=== PATIENT | male | born 1945 | race Caucasian/White ===

== ENCOUNTER 2016-12-18 10:26 | Observation (INO) | payer MEDICARE ==
[~2016-12-18] VITALS: Ht 165.1 cm; Wt 57.2 kg
--- NOTE | ~2016-12-18 | EKG ---
[address] [place] [address] ELECTROCARDIOGRAM REPORT Name: MIC NOGUERA Room #: 422-P ADM IN M.R.#: [id number] Admission: 12/18/16 Attend Phys: Gianni Parish MD Discharge: Date of : 43 Report #: [id number] THIS REPORT FOR: //name// [facility] ED Test Date: 2016-12-18 Test Time: 10:33:41 Pat Name: MIC NOGUERA Department: Room: [facility] Gender: M Conference Assistant: angelica : 1945 Requested By: Abhijeet Bright Order Number: [id number] MD: Jose Jang Measurements Intervals [place] Rate: 53 P: 92 MD: 117 QRS: 87 QRSD: 112 T: 25 QT: 465 QTc: 437 Interpretive Statements Sinus rhythm Atrial premature complexes Probable left atrial enlargement Incomplete right bundle branch block Compared to ECG 05/21/2013 08:38:43 Atrial premature complex(es) now present Incomplete right bundle-branch block now present Electronically Signed On 12-19-2016 8:17:56 CDT by Jose Jang [email or web address] <ELECTRONICALLY SIGNED> By: Jose Jang MD, [facility] 12/19/16 0817 1033 1033 Jose Jang MD, [facility] /EPI
--- NOTE | ~2016-12-18 | H ---
[facility] [place] [address] HISTORY AND PHYSICAL Name: MIC NOGUERA Room #: 422-P ADM IN M.R.#: [id number] Admission: 12/18/16 Attend Phys: Gianni Parish MD Discharge: Date of : 43 Report #: [id number] THIS REPORT FOR: //name// CC: Gianni Wright REASON FOR ADMISSION: Palpitation. HISTORY OF PRESENT ILLNESS: The patient is a pleasant 71-year-old gentleman who reports he has been experiencing intermittent palpitations for approximately the last 2 weeks. He reports these are more frequent in the morning when he wakes up and described as a racing sensation in his heart. There is no associated chest pain, shortness of breath, abdominal pain or other symptoms. He has not had any significant dizziness; however, his symptoms are persistent. On further questioning, he admits that he has not really been taking any of his home medications in the manner they are usually prescribed and will often take them only 2 or 3 times in a week fairly randomly. He is not completely clear about which medications he is supposed to be on as an outpatient either. He denies recent illness or fevers, chills, headaches, skin rashes, diarrhea, abdominal pain or other problems. He does admit to frequency of urination; however, he does empty his bladder appropriately. In the Emergency Room, he was noted to have minimal hyperkalemia and elevated creatinine as well as EKG with PACs and is being admitted for further evaluation of these problems. PAST MEDICAL HISTORY: Includes: 1. Diabetes. 2. Left internal carotid artery stenting. 3. Renal stenting. 4. CKD. 5. Hypertension. 6. PRES syndrome. 7. Coronary artery disease, status post 4-vessel CABG as well as stenting. 8. Cholecystectomy. 9. Tonsillectomy. 10. Hyperlipidemia. MEDICATIONS: At home include: 1. Januvia 100 mg oral daily. 2. Metoprolol 50 b.i.d. 3. Primidone 50 at bedtime. 4. Atorvastatin 40 at bedtime. 5. Tamsulosin 0.4 mg at bedtime. SOCIAL HISTORY: Continues to actively smoke half a pack to a pack a day. No alcohol or drug use reported. FAMILY HISTORY: Does not report any significant at the moment. [address] [address] HISTORY AND PHYSICAL Name: MIC NOGUERA Room #: 422-P [facility] IN M.R.#: [id number] Admission: 12/18/16 Attend Phys: Gianni Parish MD Discharge: Date of : 43 Report #: [id number] ALLERGIES: No known drug allergies. REVIEW OF SYSTEMS: Twelve-point review of systems performed and negative except as mentioned in the history of present illness. PHYSICAL EXAMINATION: VITAL SIGNS: Afebrile, pulse of 59, respiratory rate 18, blood pressure is 154/88, O2 sat is 98 on room air. GENERAL: Awake, alert, no acute distress. HEENT: Unremarkable. NECK: No JVD or thyromegaly. CARDIOVASCULAR: S1, S2 present, irregular. RESPIRATORY: Air entry present bilaterally. ABDOMEN: Soft, nontender, nondistended. EXTREMITIES: Without edema. NEUROLOGIC: Awake, alert. No obvious focal findings except for tremor of the head and extremities, which is chronic per the patient. SKIN: Dry. LABS AND INVESTIGATIONS: Reviewed. CBC is unremarkable. Chemistry notable for hyperkalemia 5.5, BUN and creatinine elevated at 32 and 1.6, blood glucose elevated 215. Troponin within normal range. TSH within normal range. ProBNP of 326. Chest x-ray shows no acute findings. EKG with frequent PACs and irregular rhythm with short WA interval. ASSESSMENT AND PLAN: 1. Palpitations. The patient does have significant frequent premature atrial contractions. At the present time does not have any clear causative etiology. He does appear to have sinus bradycardia with premature atrial contractions, which may be in light of metoprolol use. At the present, we will obtain an echocardiogram and monitor him on telemetry. If he does not have any other significant abnormalities of note, potentially he may benefit from discharge with a Holter monitor and further monitoring as an outpatient with Cardiology. He also may have palpitations in light of poorly controlled diabetes, especially with medication noncompliance. 2. Coronary artery disease with stents and history of bypass. No evidence of acute coronary syndrome and stable at this time. 3. Hyperlipidemia. Resume his statin. 4. Essential tremor. Resume his primidone. 5. Hyperkalemia and creatinine elevation, unclear if this is progressive chronic kidney disease versus acute renal failure. Very likely he may have an element of retention based on his symptoms. We will try and obtain a bladder ultrasound with p.r.n. straight cath as well as hydrate the patient to medically treat the same. He has also received a dose of Lasix in the Emergency Room. 6. Deep venous thrombosis prophylaxis with low dose Lovenox. [facility] [address] [place] [address] HISTORY AND PHYSICAL Name: MIC NOGUERA Room #: 422-P ADM IN M.R.#: [id number] Admission: 12/18/16 Attend Phys: Gianni Parish MD Discharge: Date of : 43 Report #: [id number] 7. Diabetes. We will start the patient on sliding scale coverage while inpatient. The patient will be admitted to observation status with further disposition plans based on his clinical course. <ELECTRONICALLY SIGNED> By: Gianni Parish MD 12/18/16 1441 1322 1351 Gianni Parish MD /nt
--- NOTE | ~2016-12-18 | 2DMMODE ---
[facility] [address] [place] [address] 2 D/M-MODE ECHOCARDIOGRAM Name: MIC NOGUERA Room #: 422-P [facility] IN ..#: [id number] Admission: 12/18/16 Attend Phys: Gianni Parish, Discharge: Date of : 43 Date of Service: 12/18/16 1539 Report #: [id number] THIS REPORT FOR: //name// APPROVED REPORT Study performed: 12/18/2016 14:08:34 EXAM: Comprehensive 2D, Doppler, and color-flow Echocardiogram Patient Location: In-Patient Room #: 422 Status: routine BSA: 1.57 HR: 59 bpm BP: 154/88 mmHg Other Information Study Quality: Good Indications Palpitations Hx NJ< CABG. DM, PVD 2D Dimensions RVDd: 32.84 mm LVEF(%): 52.96 (>50%) IVSd: 11.83 (7-11mm) LVOT Diam: 19.34 (18-24mm) LVDd: 38.89 mm PWd: 9.84 (7-11mm) Ascending Ao: 26.72 (22-36mm) LVDs: 28.48 (25-40mm) Aortic Root: 28.47 mm IVC: 2.00 mm [place]'s LVEF: 52.96 % Volumes Left Atrial Volume (Systole) Single Plane 4CH: 45.21 mL Single Plane 2CH: 53.60 mL LA ESV Index: 34.00 mL/m2 Aortic Valve AoV Peak Jaziel.: 1.22 m/s AO Peak Gr.: 7.30 mmHg LVOT Max P.93 mmHg LVOT Max V: 0.86 m/s BRITTNEY Vmax: 2.06 cm2 Mitral Valve E/A Ratio: 0.9 MV Decel. Time: 287.37 ms [facility] [place] [address] 2 D/M-MODE ECHOCARDIOGRAM Name: MIC NOGUERA Room #: 422-P [facility]..#: [id number] Admission: 12/18/16 Attend Phys: Gianni Parish, Discharge: Date of : 43 Date of Service: 12/18/16 1539 Report #: [id number] MV E Max Jaziel.: 0.82 m/s MV A Jaziel.: 0.94 m/s MV PHT: 83.34 ms IVRT: 110.73 ms Pulmonary Valve PV Peak Jaziel.: 0.81 m/s PV Peak Gr.: 2.62 mmHg Pulmonary Vein P Vein S: 0.55 m/s P Vein A: 0.24 m/s P Vein D: 0.26 m/s P Vein A Dur.: 115.3 msec P Vein S/D Ratio: 2.12 Tricuspid Valve RAP Estimate: 5.00 mmHg Left Ventricle The left ventricle is normal size. There is normal LV segmental wall motion. Borderline concentric left ventricular hypertrophy. The left ventricular systolic function is normal. The left ventricular ejection fraction is within the normal range. LVEF is >55%. Grade I - abnormal relaxation pattern. Right Ventricle The right ventricle is normal size. The right ventricular systolic function is normal. Atria Left atrium is at the upper limits of normal. The right atrium size is normal. Aortic Valve Aortic valve is calcified. No aortic regurgitation is present. There is no aortic valvular stenosis. Mitral Valve The mitral valve is normal in structure. There is no mitral valve regurgitation noted. No evidence of mitral valve stenosis. Tricuspid Valve The tricuspid valve is normal in structure. There is no tricuspid valve regurgitation noted. Pulmonic Valve The pulmonary valve is normal in structure. [facility] [address] [place] [address] 2 D/M-MODE ECHOCARDIOGRAM Name: MIC NOGUERA Room #: 422-P [facility] IN [facility]#: [id number] Admission: 12/18/16 Attend Phys: Gianni Parish, Discharge: Date of : 43 Date of Service: 12/18/16 1539 Report #: [id number] Great Vessels The aortic root is normal in size. The ascending aorta is normal in size. IVC is normal in size and collapses >50% with inspiration. Pericardium There is no pericardial effusion. <Conclusion> The left ventricle is normal size. LVEF is >55%. Left atrium is at the upper limits of normal. Aortic valve is calcified. The mitral valve is normal in structure. The tricuspid valve is normal in structure. The pulmonary valve is normal in structure. <ELECTRONICALLY SIGNED> By: Kamlesh Clark MD 12/18/16 1539 1539 1539 Kamlesh Clark MD /INF
[~2016-12-18 10:26] MED LIST: ALDACTONE25 MG PO; AMARYL2 MG PO; AMARYL4 MG PO; AMLODIPINE BESYL5 MG PO; ATIVAN0.5 MG OR; ATORVASTATIN CA40 MG PO; BENTYL20 MG PO; COZAAR100 MG PO; DEPAKOTE 250MG250 M1 OR; GLIPIZIDE 5 MG T5 MG OR; GLUCOPHAGE1000 MG PO; GLUMETZA1000 PO; HYDROCHLOROTHIA25 M1 PO; HYDROCHLOROTHIA25 M2 GT; HYDROCODONE-AP1 EAC6 PO; LISINOPRIL20 MG PO; LOPRESSOR 50 MG50 M1 OR; LOPRESSOR 50 MG50 M1 PO; LOPRESSOR25 PO; NORCO 5-325 TA1 EACH PO; NOVOLOG100 UNIT/1; NOVOLOG100 UNIT/1 SQ; PRIMIDONE50 MG PO; SERTRALINE HCL50 MG OR; TAMSULOSIN HCL0.4 MG OR; VICODIN 5-5001 EACH PO; ZOCOR80 MG PO
[2016-12-18 10:28] VITALS: BP 156/84
[2016-12-18 10:47] LABS: ABSOLUTE NEUTROPHILS 7.4 thou/uL (1.4-8.2); BASOPHILS 0.7 % (0.0-2.0); EOSINOPHILS 1.2 % (0.0-3.0); HEMATOCRIT 48.1 % (42.0-52.0); HEMOGLOBIN 16.4 gm/dL (14.0-18.0); LYMPHOCYTES 22.5 % (24.0-44.0); MCH 31.8 pg (26.0-34.0); MCHC 34.1 g/dL (28.0-37.0); MCV 93.3 fL (80.0-100.0); MONOCYTES 5.9 % (1.0-8.0); PLATELET COUNT 164 thou/uL (150-400); POLYS 69.7 % (36.0-66.0); RBC 5.15 mil/uL (4.50-6.00); RDW 13.3 % (10.5-14.5); WBC 10.7 thou/uL (4.0-11.0)
[2016-12-18 10:49] LABS: MANUAL DIFF NO
[2016-12-18 10:59] LABS: ANION GAP 5 mmol/L (7-16); BUN 32 mg/dL (7-18); CHLORIDE 106 mmol/L (98-107); CO2 28 mmol/L (21-32); CREATININE 1.6 mg/dL (0.7-1.3); GLUCOSE 215 mg/dL (74-106); POTASSIUM 5.5 mmol/L (3.5-5.1); SODIUM 139 mmol/L (136-145)
[2016-12-18] MEDS ORDERED: JANUVIA100 MG PO (11:11)
[2016-12-18 11:12] LABS: MAGNESIUM 1.9 mg/dL (1.8-2.4); TROPONIN-I < 0.04 ng/mL (<0.04-0.07)
[2016-12-18] MEDS ORDERED: LOPRESSOR50 PO (11:13)
[2016-12-18 12:40] VITALS: BP 155/72
[2016-12-18 13:15] VITALS: BP 154/88
[2016-12-18 13:40] VITALS: BP 166/67
[2016-12-18 20:09] VITALS: BP 131/58
[2016-12-19 00:04] VITALS: BP 120/74
[2016-12-19 04:50] VITALS: BP 148/75
[2016-12-19 06:07] LABS: HEMATOCRIT 44.2 % (42.0-52.0); HEMOGLOBIN 14.7 gm/dL (14.0-18.0); MCH 31.3 pg (26.0-34.0); MCHC 33.3 g/dL (28.0-37.0); RBC 4.71 mil/uL (4.50-6.00); RDW 13.1 % (10.5-14.5); WBC 12.6 thou/uL (4.0-11.0)
[2016-12-19 06:14] LABS: CALCIUM 8.1 mg/dL (8.5-10.1); CREATININE 1.5 mg/dL (0.7-1.3); POTASSIUM 4.8 mmol/L (3.5-5.1)
[2016-12-19 07:46] LABS: URINE BILIRUBIN NEGATIVE (Negative); URINE BLOOD NEGATIVE (Negative); URINE COLOR YELLOW; URINE GLUCOSE-RANDOM* NEGATIVE (Negative); URINE KETONES TRACE (Negative); URINE NITRITE NEGATIVE (Negative); URINE PROTEIN (DIPSTICK) 1+ (Negative); URINE SPECIFIC GRAVITY 1.025 (1.003-1.035)
[2016-12-19 08:15] VITALS: BP 180/78
[2016-12-19 08:38] LABS: BACTERIA 1-9 Few /HPF (None Seen); CASTS None Seen /LPF (None Seen); CRYSTALS None Seen /LPF (None Seen); SQUAMOUS 0-3 Few /LPF (0-3); URINE RBC None Seen /HPF (0-2); URINE WBC None Seen /HPF (0-5)
[2016-12-19 11:00] VITALS: BP 154/65
[2016-12-19 16:40] VITALS: BP 159/90
[2016-12-19 18:41] VITALS: BP 159/90
== END 2016-12-19 19:27 | disposition home or self-care (01) ==
LOC: ER 10:26 → 4E 12:33 → EROBS 12:33 → 4E 12:33
PROVIDERS: Emergency Medicine; Hospitalist
DX: R00.2 Palpitations (principal); I25.10 Atherosclerotic heart disease of native coronary artery without angina pectoris; I67.83 Posterior reversible encephalopathy syndrome; E11.22 Type 2 diabetes mellitus with diabetic chronic kidney disease; I12.9 Hypertensive chronic kidney disease with stage 1 through stage 4 chronic kidney disease, or unspecified chronic kidney disease; E87.5 Hyperkalemia; G25.0 Essential tremor; N17.9 Acute kidney failure, unspecified; N18.9 Chronic kidney disease, unspecified; E78.5 Hyperlipidemia, unspecified; Z95.5 Presence of coronary angioplasty implant and graft; Z96.0 Presence of urogenital implants
CPT/HCPCS: 10183

== ENCOUNTER 2016-12-26 19:30 | Emergency (ER) | payer MEDICARE ==
[~2016-12-26] VITALS: Ht 167.6 cm; Wt 57.6 kg
--- NOTE | ~2016-12-26 | EKG ---
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: RICHARD : 1945 Requested By: Ramesh Galarza Order Number: [id number] MD: Jose Jang Measurements Intervals [place] Rate: 48 P: 45 MN: 120 QRS: 95 QRSD: 101 T: 47 QT: 427 QTc: 382 Interpretive Statements Sinus rhythm Atrial premature complexes Probable left atrial enlargement Consider right ventricular hypertrophy Compared to ECG 12/18/2016 10:33:41 No significant change was found Electronically Signed On 12-27-2016 7:59:39 CDT by Jose Jang [email or web address] <ELECTRONICALLY SIGNED> By: Jose Jang MD, [facility] 12/27/16 0759 14 14 Jose Jang MD, FAC /EPI
[~2016-12-26 19:30] MED LIST changes: +JANUVIA100 MG PO; +LOPRESSOR50 PO
[2016-12-26] MEDS ORDERED: LASIX 20 MG TAB20 MG PO (20:33)
[2016-12-26 20:52] LABS: ABSOLUTE NEUTROPHILS 10.6 thou/uL (1.4-8.2); BASOPHILS 0.3 % (0.0-2.0); EOSINOPHILS 0.5 % (0.0-3.0); HEMATOCRIT 47.8 % (42.0-52.0); HEMOGLOBIN 16.3 gm/dL (14.0-18.0); LYMPHOCYTES 13.7 % (24.0-44.0); MANUAL DIFF NO; MCH 31.4 pg (26.0-34.0); MCHC 34.1 g/dL (28.0-37.0); MCV 92.2 fL (80.0-100.0); MONOCYTES 5.3 % (1.0-8.0); PLATELET COUNT 148 thou/uL (150-400); POLYS 80.2 % (36.0-66.0); RBC 5.19 mil/uL (4.50-6.00); RDW 13.4 % (10.5-14.5); WBC 13.3 thou/uL (4.0-11.0)
[2016-12-26 20:59] LABS: ANION GAP 5 mmol/L (7-16); BUN 22 mg/dL (7-18); CALCIUM 8.8 mg/dL (8.5-10.1); CHLORIDE 107 mmol/L (98-107); CO2 26 mmol/L (21-32); CREATININE 1.3 mg/dL (0.7-1.3); GLUCOSE 192 mg/dL (74-106); POTASSIUM 5.3 mmol/L (3.5-5.1); SODIUM 138 mmol/L (136-145)
[2016-12-26 21:07] LABS: TROPONIN-I < 0.04 ng/mL (<0.04-0.07)
[2016-12-26] MEDS ORDERED: NAPROSYN500 MG PO (23:19)
[2016-12-26] MEDS ORDERED: ULTRAM 50MG TAB50 MG PO (23:19)
== END 2016-12-26 23:38 | disposition home or self-care (01) ==
LOC: ER 19:30
PROVIDERS: Nurse Practitioner
DX: R07.89 Other chest pain (principal); M54.9 Dorsalgia, unspecified; M25.512 Pain in left shoulder; E11.22 Type 2 diabetes mellitus with diabetic chronic kidney disease; N18.9 Chronic kidney disease, unspecified; E78.5 Hyperlipidemia, unspecified; I25.10 Atherosclerotic heart disease of native coronary artery without angina pectoris; F17.210 Nicotine dependence, cigarettes, uncomplicated; F10.99 Alcohol use, unspecified with unspecified alcohol-induced disorder; Z90.89 Acquired absence of other organs; Z90.49 Acquired absence of other specified parts of digestive tract

== ENCOUNTER 2017-03-22 22:58 | Observation (INO) | payer MEDICARE ==
[~2017-03-22] VITALS: Ht 167.6 cm; Wt 56.7 kg
--- NOTE | ~2017-03-22 | EKG ---
[address] [place] [address] ELECTROCARDIOGRAM REPORT Name: MIC NOGUERA Room #: 448-[facility] M.R.#: [id number] Admission: 03/23/17 Attend Phys: Marcos Garcia Discharge: Date of : 43 Report #: [id number] THIS REPORT FOR: //name// [facility] Test Date: 2017-03-23 Test Time: 07:45:14 Pat Name: MIC NOGUERA Department: Room: 448 P Gender: M Subway Repair Supervisor: ABUNDIO : 1945 Requested By: Marcos Garcia Order Number: [id number] MD: Jose Jang Measurements Intervals [place] Rate: 54 P: 52 ID: 115 QRS: 94 QRSD: 93 T: 48 QT: 458 QTc: 435 Interpretive Statements Sinus rhythm Atrial premature complexes Right axis deviation RSR' in V1 or V2, probably normal variant Poor R wave progression Compared to ECG 12/26/2016 20:15:41 No significant change was found Electronically Signed On 03-24-2017 14:12:16 FIRER GLOST KILN by Jose Jang [email or web address] <ELECTRONICALLY SIGNED> By: Jose Jang MD, [facility] 03/24/17 1412 0745 0745 Jose Jang MD, [facility] /EPI
--- NOTE | ~2017-03-22 | EKG ---
[address] [place] [address] ELECTROCARDIOGRAM REPORT Name: MIC NOGUERA Room #: 448-P [facility] M.R.#: [id number] Admission: 03/23/17 Attend Phys: Marcos Garcia Discharge: Date of : 43 Report #: [id number] THIS REPORT FOR: //name// [facility] ED Test Date: 2017-03-23 Test Time: 00:12:03 Pat Name: IMC NOGUERA Department: Room: [facility] Gender: M Optician Apprentice Dispensing: SOBIA : 1945 Requested By: Abdulaziz Joe Order Number: [id number] MD: Jose Jang Measurements Intervals [place] Rate: 82 P: 68 PA: 120 QRS: 109 QRSD: 96 T: 24 QT: 399 QTc: 466 Interpretive Statements Sinus rhythm Right ventricular conduction delay Poor R wave progression Compared to ECG 12/26/2016 20:15:41 Atrial premature complex(es) no longer present Electronically Signed On 03-24-2017 14:11:36 SHEET METAL WORKER MAINTENANCE by Jose Jang [email or web address] <ELECTRONICALLY SIGNED> By: Jose Jang MD, [facility] 03/24/17 1411 001 Jose Jang MD, [facility] /EPI
[~2017-03-22 22:58] MED LIST changes: +LASIX 20 MG TAB20 MG PO; +NAPROSYN500 MG PO; +ULTRAM 50MG TAB50 MG PO
[2017-03-22 22:59] VITALS: BP 136/86
[2017-03-22 23:48] LABS: ABSOLUTE NEUTROPHILS 7.5 thou/uL (1.4-8.2); BASOPHILS 0.6 % (0.0-2.0); EOSINOPHILS 0.8 % (0.0-3.0); HEMATOCRIT 49.4 % (42.0-52.0); HEMOGLOBIN 16.4 gm/dL (14.0-18.0); LYMPHOCYTES 16.1 % (24.0-44.0); MCHC 33.2 g/dL (28.0-37.0); MCV 93.2 fL (80.0-100.0); MONOCYTES 5.5 % (1.0-8.0); PLATELET COUNT 171 thou/uL (150-400); RDW 13.9 % (10.5-14.5); WBC 9.8 thou/uL (4.0-11.0)
[2017-03-22 23:51] LABS: MANUAL DIFF NO
[2017-03-22 23:52] LABS: URINE BILIRUBIN NEGATIVE (Negative); URINE BLOOD 1+ (Negative); URINE COLOR YELLOW; URINE GLUCOSE-RANDOM* 2+ (Negative); URINE KETONES NEGATIVE (Negative); URINE LEUKOCYTES-REFLEX NEGATIVE (Negative); URINE PROTEIN (DIPSTICK) 3+ (Negative); URINE SPECIFIC GRAVITY >= 1.030 (1.003-1.035)
[2017-03-22 23:58] LABS: ANION GAP 6 mmol/L (7-16); BUN 26 mg/dL (7-18); CALCIUM 8.5 mg/dL (8.5-10.1); CHLORIDE 105 mmol/L (98-107); CO2 28 mmol/L (21-32); CREATININE 1.5 mg/dL (0.7-1.3); GLUCOSE 242 mg/dL (74-106); POTASSIUM 5.4 mmol/L (3.5-5.1); SODIUM 139 mmol/L (136-145)
[2017-03-23] LABS: AMORPHOUS URATES Many /LPF (None Seen); SQUAMOUS 0-3 Few /LPF (0-3)
[2017-03-23 00:01] LABS: TRANSITIONAL EPITHEL CELL 0-3 Few /LPF (None Seen); URINE WBC-REFLEX 0-5 Rare /HPF (0-5)
[2017-03-23 00:02] LABS: CASTS None Seen /LPF (None Seen); URINE RBC 0-2 Rare /HPF (0-2)
[2017-03-23 00:06] LABS: ALBUMIN 3.5 g/dL (3.4-5.0); ALKALINE PHOSPHATASE 129 U/L (46-116); MAGNESIUM 1.9 mg/dL (1.8-2.4); SGOT 12 U/L (15-37); SGPT 15 U/L (30-65); TOTAL BILIRUBIN 0.3 mg/dL (<0.1-1.0); TROPONIN-I < 0.04 ng/mL (<0.06)
[2017-03-23 02:31] VITALS: BP 154/62
[2017-03-23 02:56] VITALS: BP 165/55
[2017-03-23 08:00] VITALS: BP 153/69
[2017-03-23 16:00] VITALS: BP 131/59
[2017-03-23 20:31] VITALS: BP 150/58
[2017-03-24 05:38] VITALS: BP 120/68
[2017-03-24 05:59] LABS: HEMATOCRIT 39.5 % (42.0-52.0); MCH 30.8 pg (26.0-34.0); MCHC 32.8 g/dL (28.0-37.0); RBC 4.2 mil/uL (4.50-6.00); WBC 7.6 thou/uL (4.0-11.0)
[2017-03-24 06:08] LABS: CALCIUM 7.7 mg/dL (8.5-10.1); CREATININE 1.4 mg/dL (0.7-1.3); POTASSIUM 5.1 mmol/L (3.5-5.1)
[2017-03-24 07:55] VITALS: BP 176/77
[2017-03-24 08:01] VITALS: BP 176/71
[2017-03-24 15:52] VITALS: BP 148/76
[2017-03-24 21:27] VITALS: BP 138/88
[2017-03-25] MEDS ORDERED: CEFDINIR300 MG PO (10:18)
[2017-03-25 10:21] VITALS: BP 138/88
== END 2017-03-25 11:20 | disposition home or self-care (01) ==
LOC: ER 22:58 → EROBS 03-23 01:40 → 4S 03-23 02:33 → ENTRNSPT 03-25 11:06 → 4S 03-25 11:20
PROVIDERS: Emergency Medicine
DX: R50.9 Fever, unspecified (principal); N40.0 Benign prostatic hyperplasia without lower urinary tract symptoms; E78.5 Hyperlipidemia, unspecified; I25.10 Atherosclerotic heart disease of native coronary artery without angina pectoris; F17.210 Nicotine dependence, cigarettes, uncomplicated; E11.22 Type 2 diabetes mellitus with diabetic chronic kidney disease; N18.9 Chronic kidney disease, unspecified; Z95.1 Presence of aortocoronary bypass graft

== ENCOUNTER 2017-06-06 22:32 | Inpatient (IN) | payer MEDICARE ==
[~2017-06-06] VITALS: Ht 167.6 cm; Wt 59.9 kg
[2017-06-06 22:32] VITALS: BP 162/143
[~2017-06-06 22:32] MED LIST changes: +CEFDINIR300 MG PO
[2017-06-06 23:08] LABS: HEMOGLOBIN 17.1 gm/dL (14.0-18.0); MCH 31.2 pg (26.0-34.0); MCHC 34.3 g/dL (28.0-37.0); MCV 90.8 fL (80.0-100.0); RBC 5.5 mil/uL (4.50-6.00); RDW 13.2 % (10.5-14.5); WBC 11.4 thou/uL (4.0-11.0)
[2017-06-06 23:12] LABS: ANION GAP 7 mmol/L (7-16); BUN 27 mg/dL (7-18); CALCIUM 8.8 mg/dL (8.5-10.1); CHLORIDE 99 mmol/L (98-107); CO2 30 mmol/L (21-32); CREATININE 1.9 mg/dL (0.7-1.3); GLUCOSE 224 mg/dL (74-106); POTASSIUM 4.6 mmol/L (3.5-5.1); SODIUM 136 mmol/L (136-145)
[2017-06-06 23:21] LABS: ALBUMIN 3.2 g/dL (3.4-5.0); SGOT 17 U/L (15-37); SGPT 16 U/L (30-65); TOTAL BILIRUBIN 0.7 mg/dL (<0.1-1.0); TROPONIN-I < 0.04 ng/mL (<0.06)
[2017-06-06 23:51] LABS: URINE BLOOD 1+ (Negative); URINE CLARITY CLEAR; URINE GLUCOSE-RANDOM* 1+ (Negative); URINE KETONES TRACE (Negative); URINE LEUKOCYTES-REFLEX NEGATIVE (Negative); URINE NITRITE-REFLEX NEGATIVE (Negative); URINE PROTEIN (DIPSTICK) 3+ (Negative); URINE SPECIFIC GRAVITY >= 1.030 (1.005-1.035)
[2017-06-06 23:53] LABS: ICTOTEST (BILI CONFIRMATORY) Negative (Negative); URINE BILIRUBIN NEGATIVE (Negative); URINE COLOR DARK YELLOW
[2017-06-07 00:25] LABS: SQUAMOUS 0-3 Few /LPF (0-3)
[2017-06-07 00:26] LABS: BACTERIA-REFLEX 1-9 Few /HPF (None Seen); CRYSTALS None Seen /LPF (None Seen); HYALINE CASTS >10 Many /LPF (None Seen); URINE RBC 3-10 Few /HPF (0-2); URINE WBC-REFLEX 0-5 Rare /HPF (0-5)
[2017-06-07 00:42] VITALS: BP 140/65
[2017-06-07 05:04] VITALS: BP 153/59
[2017-06-07 06:32] LABS: ANION GAP 7 mmol/L (7-16); BUN 21 mg/dL (7-18); CALCIUM 7.6 mg/dL (8.5-10.1); CHLORIDE 106 mmol/L (98-107); CHOLESTEROL 150 mg/dL (<200); CO2 25 mmol/L (21-32); CREATININE 1.4 mg/dL (0.7-1.3); GLUCOSE 173 mg/dL (74-106); HDL CHOLESTEROL 33 mg/dL (>40); LDL CHOLESTEROL 83 mg/dL (<100); POTASSIUM 4.1 mmol/L (3.5-5.1); SODIUM 138 mmol/L (136-145); TC:HDL 4.5 Ratio (Not establshd); TRIGLYCERIDE 170 mg/dL (<150); VLDL 34 mg/dL (<40)
[2017-06-07 06:34] LABS: SERUM ASSESSMENT Clear
[2017-06-07 07:50] VITALS: BP 107/94
[2017-06-07 11:43] VITALS: BP 106/44
[2017-06-07 17:02] VITALS: BP 154/65
[2017-06-07 19:50] VITALS: BP 171/71
[2017-06-08 05:12] VITALS: BP 175/100
[2017-06-08 08:00] VITALS: BP 157/74
[2017-06-08] MEDS ORDERED: NORVASC10 MG PO (08:16)
[2017-06-08] MEDS ORDERED: ASPIR 8181 MG PO (08:16)
[2017-06-08 11:45] VITALS: BP 122/52
[2017-06-08 15:45] VITALS: BP 104/56
[2017-06-08 19:32] VITALS: BP 103/56
[2017-06-09 04:40] VITALS: BP 136/72
[2017-06-09 08:42] LABS: ABSOLUTE NEUTROPHILS 6.3 thou/uL (1.4-8.2); BASOPHILS 0.7 % (0.0-2.0); HEMATOCRIT 44.9 % (42.0-52.0); LYMPHOCYTES 22.1 % (24.0-44.0); MCH 30.9 pg (26.0-34.0); MCHC 33.4 g/dL (28.0-37.0); MCV 92.4 fL (80.0-100.0); MONOCYTES 6.9 % (1.0-8.0); PLATELET COUNT 148 thou/uL (150-400); POLYS 69.3 % (36.0-66.0); RBC 4.86 mil/uL (4.50-6.00); RDW 13.3 % (10.5-14.5); WBC 9.1 thou/uL (4.0-11.0)
[2017-06-09 08:47] LABS: CREATININE 1.5 mg/dL (0.7-1.3); MAGNESIUM 1.8 mg/dL (1.8-2.4); POTASSIUM 4.3 mmol/L (3.5-5.1)
[2017-06-09 08:55] VITALS: BP 145/67
[2017-06-09 15:12] LABS: FOLIC ACID 10.2 ng/mL (8.6-58.9)
[2017-06-09 16:55] VITALS: BP 138/62
[2017-06-09 19:38] VITALS: BP 154/72
[2017-06-10 03:15] VITALS: BP 171/73
[2017-06-10 07:38] VITALS: BP 146/61
[2017-06-10 09:56] VITALS: BP 146/61
[2017-06-10 13:28] VITALS: BP 146/61
[2017-08-26] MEDS ORDERED: NORCO 5-325 TA1 EACH PO (02:15)
[2017-08-27] MEDS ORDERED: ULTRAM 50MG TAB50 MG PO (11:01)
== END 2017-06-10 13:55 | disposition home health service (06) | DRG 70 ==
LOC: ER 22:32 → 2N 23:56 → EROBS 23:56 → 2N 06-07 00:45 → ENTRNSPT 06-10 13:48 → EDTRNSPTSTS 06-10 13:52 → 2N 06-10 13:55
PROVIDERS: Emergency Medicine; Nurse Practitioner; Nurse Practitioner Acute Care
DX: G93.41 Metabolic encephalopathy (principal); N17.0 Acute kidney failure with tubular necrosis; E78.5 Hyperlipidemia, unspecified; I25.10 Atherosclerotic heart disease of native coronary artery without angina pectoris; R47.81 Slurred speech; F17.210 Nicotine dependence, cigarettes, uncomplicated; N18.3 Chronic kidney disease, stage 3 (moderate); E11.51 Type 2 diabetes mellitus with diabetic peripheral angiopathy without gangrene; I12.9 Hypertensive chronic kidney disease with stage 1 through stage 4 chronic kidney disease, or unspecified chronic kidney disease; E86.0 Dehydration; R25.1 Tremor, unspecified; N40.0 Benign prostatic hyperplasia without lower urinary tract symptoms; E11.22 Type 2 diabetes mellitus with diabetic chronic kidney disease; Z90.49 Acquired absence of other specified parts of digestive tract; Z95.1 Presence of aortocoronary bypass graft; Z79.899 Other long term (current) drug therapy; Z95.820 Peripheral vascular angioplasty status with implants and grafts; Z91.14 Patient's other noncompliance with medication regimen; Z88.6 Allergy status to analgesic agent; Z79.82 Long term (current) use of aspirin
CPT/HCPCS: 10081

== ENCOUNTER → 2018-03-18 | Outpatient (CLI) | payer BC ==
[~2018-03-18] MED LIST changes: +ASPIR 8181 MG PO; +NORVASC10 MG PO
== END ==
LOC: RAD 09:11
DX: R07.81 Pleurodynia (principal); M54.5 Low back pain; W19.XXXA Unspecified fall, initial encounter

== ENCOUNTER → 2018-08-14 | Outpatient (CLI) | payer MEDICARE | LOC: NUC 09:40 | DX: I25.10 Atherosclerotic heart disease of native coronary artery without angina pectoris (principal); I48.91 Unspecified atrial fibrillation; E11.9 Type 2 diabetes mellitus without complications; F17.200 Nicotine dependence, unspecified, uncomplicated; Z88.5 Allergy status to narcotic agent; Z79.899 Other long term (current) drug therapy ==

== ENCOUNTER → 2018-12-04 | Outpatient (CLI) | payer MEDICARE | LOC: MRI 10:59 | DX: M51.27 Other intervertebral disc displacement, lumbosacral region (principal); M47.816 Spondylosis without myelopathy or radiculopathy, lumbar region; M12.88 Other specific arthropathies, not elsewhere classified, other specified site ==

== ENCOUNTER 2019-05-05 15:49 | Emergency (ER) | payer MEDICARE ==
[~2019-05-05] VITALS: Ht 167.6 cm; Wt 51.3 kg
[2019-05-05 16:14] LABS: ABSOLUTE NEUTROPHILS 7.2 thou/uL (1.4-8.2); BASOPHILS 0.8 % (0.0-2.0); EOSINOPHILS 0.8 % (0.0-3.0); HEMATOCRIT 45.9 % (42.0-52.0); HEMOGLOBIN 15.1 gm/dL (14.0-18.0); LYMPHOCYTES 17.9 % (24.0-44.0); MCH 31.2 pg (26.0-34.0); MCHC 32.8 g/dL (28.0-37.0); MCV 95.1 fL (80.0-100.0); MONOCYTES 6.2 % (1.0-8.0); PLATELET COUNT 197 thou/uL (150-400); POLYS 74.3 % (36.0-66.0); RBC 4.83 mil/uL (4.50-6.00); RDW 14.2 % (10.5-14.5); WBC 9.8 thou/uL (4.0-11.0)
[2019-05-05 16:26] LABS: APTT 29.1 Seconds (24.5-32.8); INR 1.1; PROTIME 10.8 Seconds (9.3-11.4)
[2019-05-05 16:31] LABS: ALBUMIN 3.8 g/dL (3.4-5.0); ANION GAP 5 mmol/L (7-16); BUN 19 mg/dL (7-18); CALCIUM 9.4 mg/dL (8.5-10.1); CHLORIDE 109 mmol/L (98-107); CO2 30 mmol/L (21-32); CREATININE 1.9 mg/dL (0.7-1.3); GLUCOSE 132 mg/dL (74-106); SGOT 13 U/L (15-37); SGPT 17 U/L (30-65); SODIUM 144 mmol/L (136-145); TOTAL BILIRUBIN 0.5 mg/dL (<0.1-1.0); TOTAL PROTEIN 8.1 g/dL (6.4-8.2); TROPONIN-I <0.06 ng/mL (<0.06)
[2019-05-05 16:37] LABS: POTASSIUM 6.3 mmol/L (3.5-5.1)
[2019-05-05] MEDS ORDERED: PREDNISONE 20 M20 M1 PO (18:37)
[2019-05-05 18:58] VITALS: BP 152/90
--- NOTE | 2019-05-06 17:12 | EKG ---
[address] [address] ELECTROCARDIOGRAM REPORT Name: MIC NOGUERA [id number] Admission: 05/05/19 Attend Phys: Discharge: 05/05/19 Date of : 43 Report #: [id number] THIS REPORT FOR: //name// [facility] ED Test Date: 2019-05-05 Test Time: 16:24:04 Pat Name: MIC NOGUERA Department: Room: Gender: Mc Kay Machine Operator: JERALD : 1945 Requested By: Orin Wang Order Number: [id number] MD: Grover Robertson Measurements Intervals [place] Rate: 66 P: 24 TN: 127 QRS: 139 QRSD: 135 T: 151 QT: 446 QTc: 468 Interpretive Statements Sinus rhythm RBBB and LPFB Motion artifact Compared to ECG 08/26/2017 04:07:24 Electronically Signed On 05-06-2019 17:11:21 CELL LINER by Grover Robertson [email or web address] <ELECTRONICALLY SIGNED> By: Grover Robertson MD 05/06/19 1711 D: [id number] 23 Grover Robertson MD /[place]
== END 2019-05-05 19:14 | disposition home or self-care (01) ==
LOC: ER 15:49
PROVIDERS: Emergency Medicine
DX: G51.0 Bell's palsy (principal); E87.5 Hyperkalemia; I25.10 Atherosclerotic heart disease of native coronary artery without angina pectoris; E11.22 Type 2 diabetes mellitus with diabetic chronic kidney disease; N18.9 Chronic kidney disease, unspecified; E78.5 Hyperlipidemia, unspecified; F17.210 Nicotine dependence, cigarettes, uncomplicated; R56.9 Unspecified convulsions; Z95.1 Presence of aortocoronary bypass graft; Z90.49 Acquired absence of other specified parts of digestive tract; Z88.6 Allergy status to analgesic agent

== ENCOUNTER 2019-10-20 18:59 | Inpatient (IN) | payer MEDICARE ==
[~2019-10-20] VITALS: Ht 167.6 cm; Wt 51.3 kg
[~2019-10-20 18:59] MED LIST changes: +PREDNISONE 20 M20 M1 PO
[2019-10-20 19:00] VITALS: BP 244/122
[2019-10-20 19:26] LABS: ABSOLUTE NEUTROPHILS 5.4 thou/uL (1.4-8.2); BASOPHILS 0.7 % (0.0-2.0); EOSINOPHILS 0.8 % (0.0-3.0); HEMATOCRIT 50.8 % (42.0-52.0); HEMOGLOBIN 17.1 gm/dL (14.0-18.0); LYMPHOCYTES 23.3 % (24.0-44.0); MCH 31.8 pg (26.0-34.0); MCHC 33.7 g/dL (28.0-37.0); MCV 94.4 fL (80.0-100.0); MONOCYTES 5.5 % (1.0-8.0); PLATELET COUNT 179 thou/uL (150-400); POLYS 69.7 % (36.0-66.0); RBC 5.38 mil/uL (4.50-6.00); RDW 13.9 % (10.5-14.5); WBC 7.8 thou/uL (4.0-11.0)
[2019-10-20 19:30] LABS: ANION GAP 3 mmol/L (7-16); BUN 14 mg/dL (7-18); CALCIUM 8.5 mg/dL (8.5-10.1); CHLORIDE 102 mmol/L (98-107); CO2 31 mmol/L (21-32); CREATININE 1.5 mg/dL (0.7-1.3); GLUCOSE 173 mg/dL (74-106); SODIUM 136 mmol/L (136-145)
[2019-10-20 19:41] LABS: ALBUMIN 3.5 g/dL (3.4-5.0); MAGNESIUM 1.9 mg/dL (1.8-2.4); SGOT 14 U/L (15-37); SGPT 13 U/L (30-65); TOTAL BILIRUBIN 0.5 mg/dL (0.2-1.0); TOTAL PROTEIN 7.2 g/dL (6.4-8.2); TROPONIN-I <0.06 ng/mL (<0.06)
[2019-10-20 20:11] LABS: URINE BILIRUBIN NEGATIVE (Negative); URINE BLOOD 1+ (Negative); URINE CLARITY CLEAR; URINE COLOR YELLOW; URINE GLUCOSE-RANDOM* TRACE (Negative); URINE KETONES NEGATIVE (Negative); URINE LEUKOCYTES-REFLEX NEGATIVE (Negative); URINE NITRITE-REFLEX NEGATIVE (Negative); URINE PROTEIN (DIPSTICK) 3+ (Negative)
[2019-10-20 20:20] LABS: AMP/METHAMP Negative (Negative); BARBITURATES Negative (Negative); BENZODIAZEPINES Negative (Negative); COCAINE Negative (Negative); METHADONE Negative (Negative); OPIATES POSITIVE (Negative); PCP Negative (Negative); SQUAMOUS None Seen /LPF (0-3); URINE WBC-REFLEX 0-5 Rare /HPF (0-5)
[2019-10-20 20:21] LABS: BACTERIA-REFLEX None Seen /HPF (None Seen); CASTS None Seen /LPF (None Seen); CRYSTALS None Seen /LPF (None Seen); URINE RBC 0-2 Rare /HPF (0-2)
[2019-10-20 21:31] VITALS: BP 177/79
--- NOTE | 2019-10-20 21:43 | NUR ---
CALLED TO GIVE REPORT, WAS TOLD NURSE WILL HAVE TO CALL BACK
[2019-10-20 22:18] VITALS: BP 186/86
[2019-10-20 22:45] VITALS: BP 171/79
[2019-10-20 23:38] LABS: CHOLESTEROL 175 mg/dL (<200); HDL CHOLESTEROL 37 mg/dL (>40); LDL CHOLESTEROL 110 mg/dL (<100); TC:HDL 4.7 Ratio (Not establshd); TRIGLYCERIDE 144 mg/dL (<150); VLDL 29 mg/dL (<40)
[2019-10-20 23:39] LABS: SERUM ASSESSMENT Clear
[2019-10-21 00:15] VITALS: BP 114/62
[2019-10-21 05:02] VITALS: BP 139/68
--- NOTE | 2019-10-21 05:13 | NUR ---
PT WAS AN ADMIT FROM ER. PT WAS ADMITTED WITH ELEVATED BLOOD PRESSURE. PT IS STABLE UPON ARRIVAL TO THE FLOOR. NO FAMILY AT BEDSIDE. DENIES ANY PAIN. ADMISSION ASSESSMENT, DATA AND EDUCATION COMPLETED. PT IS ALERT AND ORIENTED. FALL PRECAUTION IN PLACE. CALL LIGHT WITHIN REACH. NURSING POC. MONITORED BLOOD THROUGH THE NIGHT. BLOOD PRESSURE IMPROVED. PT IS STABLE THROUGH THE NIGHT. DENIES ANY NEEDS. CONTINUE TO MONITOR PT.
[2019-10-21 05:52] LABS: HEMATOCRIT 42.5 % (42.0-52.0); MCH 31.7 pg (26.0-34.0); MCHC 33.3 g/dL (28.0-37.0); RBC 4.48 mil/uL (4.50-6.00); RDW 13.9 % (10.5-14.5); WBC 8.4 thou/uL (4.0-11.0)
[2019-10-21 06:01] LABS: HEMOGLOBIN 14.2 gm/dL (14.0-18.0)
[2019-10-21 06:24] LABS: CALCIUM 7.7 mg/dL (8.5-10.1); CREATININE 1.6 mg/dL (0.7-1.3); MAGNESIUM 1.7 mg/dL (1.8-2.4); POTASSIUM 4.7 mmol/L (3.5-5.1); TROPONIN-I 0.12 ng/mL (<0.06)
--- NOTE | 2019-10-21 07:33 | EKG ---
[facility] [place] [address] ELECTROCARDIOGRAM REPORT Name: MIC NOGUERA Room #: 214-P ADM IN M.R.#: [id number] Admission: 10/20/19 Attend Phys: Fadi Cabral MD Discharge: Date of : 43 Report #: [id number] THIS REPORT FOR: cc: Rahel Alegria MD, Nora P. MD Lundgren,Jose Lyons MD [facility] ~ THIS REPORT FOR: //name// [facility] ED Test Date: 2019-10-20 Test Time: 19:27:06 Pat Name: MIC NOGUERA Department: Room: 214 Gender: M Quality Assurance Engineer: HEIDI : 1945 Requested By: Abdulaziz Joe Order Number: [id number] MD: Jose Jang Measurements Intervals [place] Rate: 114 P: 69 MA: 125 QRS: 132 QRSD: 130 T: 42 QT: 362 QTc: 499 Interpretive Statements Sinus tachycardia Rightward axis, consider RVH Incomplete right bundle branch block Baseline wander in lead(s) V1 Compared to ECG 05/05/2019 16:24:04 Heart rate has increased Electronically Signed On 10-21-2019 7:32:20 CDT by Jose Jang [email or web address] <ELECTRONICALLY SIGNED> By: Jose Jang MD, [facility] 10/21/19 0732 26 26 Jose Jang MD, [facility] /EPI
[2019-10-21 07:40] VITALS: BP 154/83
--- NOTE | 2019-10-21 10:55 | 2DMMODE ---
[facility] [place] [address] 2 D/M-MODE ECHOCARDIOGRAM Name: MIC NOGUERA Room #: 214-P ADM IN .R.#: [id number] Admission: 10/20/19 Attend Phys: Fadi Cabral MD Discharge: Date of : 43 Report #: [id number] THIS REPORT FOR: cc: Rahel Alegria MD, Nora P. MD Park, Jin S. MD ~ APPROVED REPORT Study performed: 10/21/2019 10:08:09 EXAM: Comprehensive 2D, Doppler, and color-flow Echocardiogram Patient Location: Bedside Room #: 214 Status: routine BSA: 1.58 HR: 65 bpm BP: 154/83 mmHg Rhythm: Sinus/irregular Other Information Study Quality: Good Indications Hypertensive urgency. Hx: CABG, PVD, DM, HTLP, HTN, Tob abuse. 2D Dimensions RVDd: 32.04 mm IVSd: 14.00 (7-11mm) LVOT Diam: 19.32 (18-24mm) LVDd: 39.00 mm PWd: 12.00 (7-11mm) LVDs: 25.12 (25-40mm) Aortic Root: 32.64 mm Volumes Left Atrial Volume (Systole) Single Plane 4CH: 39.45 mL Single Plane 2CH: 46.04 mL LA ESV Index: 28.00 mL/m2 Aortic Valve AoV Peak Jaziel.: 1.31 m/s AO Peak Gr.: 7.60 mmHg LVOT Max P.13 mmHg LVOT Max V: 0.89 m/s BRITTNEY Vmax: 1.99 cm2 [facility] [address] [place] [address] 2 D/M-MODE ECHOCARDIOGRAM Name: MIC NOGUERA Room #: 214-P [facility] IN [facility]#: [id number] Admission: 10/20/19 Attend Phys: Fadi Cabral, Discharge: Date of : 43 Report #: [id number] Mitral Valve E/A Ratio: 0.7 MV Decel. Time: 358.04 ms MV E Max Jaziel.: 0.77 m/s MV A Jaziel.: 1.07 m/s MV PHT: 103.83 ms IVRT: 103.81 ms Pulmonary Valve PV Peak Jaziel.: 1.03 m/s PV Peak Gr.: 4.27 mmHg Pulmonary Vein P Vein S: 0.36 m/s P Vein A: 0.24 m/s P Vein D: 0.23 m/s P Vein A Dur.: 138.4 msec P Vein S/D Ratio: 1.57 Tricuspid Valve RAP Estimate: 5.00 mmHg Left Ventricle The left ventricle is normal size. There is normal LV segmental wall motion. Mild concentric left ventricular hypertrophy. Left ventricular systolic function is hyperdynamic. LVEF is 65-70%. Mild diastolic dysfunction is present (impaired relaxation pattern). Right Ventricle The right ventricle is normal size. The right ventricular systolic function is normal. Atria The left atrium size is normal. The right atrium size is normal. Aortic Valve Aortic valve leaflets are mildly thickened and calcified. No aortic regurgitation is present. There is no aortic valvular stenosis. Mitral Valve Mitral valve leaflets are thickened. Mild mitral annular calcification. There is no mitral valve regurgitation noted. No evidence of mitral valve stenosis. Tricuspid Valve [facility] [address] [place] [address] 2 D/M-MODE ECHOCARDIOGRAM Name: CHUCKIELULUKIAH Room #: 214-P [facility] IN .R.#: [id number] Admission: 10/20/19 Attend Phys: Fadi Cabral, Discharge: Date of : 43 Report #: [id number] The tricuspid valve is normal in structure. There is no tricuspid valve regurgitation noted. Unable to assess PA pressure. Pulmonic Valve The pulmonary valve is normal in structure. There is no pulmonic valvular regurgitation. Great Vessels The aortic root is normal in size. Ascending aorta is not well visualized. IVC is normal in size and collapses >50% with inspiration. Pericardium There is no pericardial effusion. <Conclusion> The left ventricle is normal size. Mild concentric left ventricular hypertrophy. Left ventricular systolic function is hyperdynamic. Mild diastolic dysfunction is present (impaired relaxation pattern). The right ventricle is normal size. The left atrium size is normal. Aortic valve leaflets are mildly thickened and calcified. Mild mitral annular calcification. There is no tricuspid valve regurgitation noted. <ELECTRONICALLY SIGNED> By: Dany Freed MD 10/21/19 1054 1054 1054 Dany Freed MD /INF
--- NOTE | 2019-10-21 11:02 | NUR ---
Recommend start Vitamin B12 replacement, level is 252
[2019-10-21 11:58] VITALS: BP 167/78
--- NOTE | 2019-10-21 12:14 | NUR ---
Chart reviewed and case discussed with the care team. Supervisor Force Adjustment visited with the pt at bedside. He was short and aggravated that people keep coming in to bother him. He did indicate that he lives with multiple family members including his son and two grandsons. He reports that his son Isaac and his dtr Judie are his spokespersons and emergency contacts. He reports them helpful at times. He denies any concerns about caring for himself at home and notes that he has a w/c and rwalker. He reports being indep with transfers. Staff report that his mental status is improved from yesterday. The pt's pcp is Dr. Rahel Alergia/Rober. He anticipates returning home at nc. Nursing reports that his dtr has called to check on him this am and she indicates he does have periods of STM loss and has needed more help with managing his affairs. PT/OT evals are pending. Pt is being seen by neuro and jonathan today. Will follow along for possible hh referral at nc pending his progress.
--- NOTE | 2019-10-21 12:16 | NUR ---
PT. FORM FOR MRI SENT DOWN AT THIS TIME. PT. DENIES ANUY CONTRAST DYE ISSUES PRIOR. DENIES ANY SOB, DENIES ANY CP AT PRESENT. HAS HAND TREMORS STILL AND SAID HE HAS HAD THEM FOR 30 YEAR'S.
[2019-10-21 15:38] VITALS: BP 162/70
--- NOTE | 2019-10-21 15:41 | NUR ---
MRI CALLED AND SAID THAT HIS RESULTS FOR HIS MRI SHOW AN INFARCT. WILL CALL MD WITH RESULTS NOW. TRANSFER IS X1 ASSIST WITH GAIT BELT. HE APPEARS TO HAVE SOME VERBAL ASPHAGIA AND EXPRESSIVE DYSPHAGIA GOING ON WELL. FAMILY HAS CALLED WELL AND UPDATE WAS GIVEN TO DAUGHTER KUMAR . DENIES SOB, DENIES CP.
--- NOTE | 2019-10-21 15:43 | NUR ---
0800 PT. SLEEPING AROUSES EASILY, FOLLOWS COMMANDS OVERALL. EXPRESSIVE DYSPHAGIA OBSERVED OVERALL. DENIES CP, DENIES SOB.
[2019-10-21 19:16] VITALS: BP 158/74
[2019-10-22] VITALS (7 sets, daily range): BP systolic 94–190; BP diastolic 48–113
[2019-10-22 00:06] LABS: GLYCOHEMOGLOBIN (HGB A1C) 6.7 % (4.8-5.6)
[2019-10-22 05:24] LABS: CALCIUM 8.6 mg/dL (8.5-10.1); CREATININE 1.4 mg/dL (0.7-1.3); POTASSIUM 4.9 mmol/L (3.5-5.1)
[2019-10-22 08:27] LABS: HEMATOCRIT 50.6 % (42.0-52.0); MCH 31.8 pg (26.0-34.0); MCHC 33.5 g/dL (28.0-37.0); RBC 5.33 mil/uL (4.50-6.00); RDW 14.1 % (10.5-14.5); WBC 10.1 thou/uL (4.0-11.0)
--- NOTE | 2019-10-22 08:27 | NUR ---
ASSUMED CARE OF PT AT SHIFT CHANGE, NOTED HTN AT 0400 VS, HIGH DURING THIS SHIFT WELL SO WILL ADM PRN MED. A&0X4, HAS TREMORS/SHAKES, CHRONIC, STATES HE USES A CANE AT HOME/AND SOMETIMES A WALKER. NO NEEDS AT THIS TIME OTHER THAN FRESH WATER, MINIMAL PAIN IN RIBS. SCATTERED BRUNA BRUISING. SEE SEPARATE INTERVENTIONS FOR ASSESSMENTS, WILL CONTINUE TO MONITOR. ENCOURAGED PT TO USE CALL LIGHT FOR ANY NEEDS
[2019-10-22 08:35] LABS: HEMOGLOBIN 16.9 gm/dL (14.0-18.0)
--- NOTE | 2019-10-22 16:09 | NUR ---
PATIENT SEEN FOR REHAB CONSULT THIS DATE BY BI RODRIGUEZ NP WITH DR. BILL. PATIENT IS AN APPROPRIATE CANDIDATE FOR ACUTE REHAB AND CAN BE ACCEPTED TO WHEN MEDICALLY READY. CHEMICAL RADIATION TECHNICIAN INFORMED. THANK YOU FOR THIS REFERRAL.
--- NOTE | 2019-10-22 16:32 | NUR ---
Case discussed with the care team. New CVA confirmed via CT. Pt evaluated by Marcos acute rehab and accept pending insurance approval. VinceN liason to touch base with the pt/son. The pt is not able to return directly/saftley home. Marcos is submitting for ins auth.
--- NOTE | 2019-10-22 18:41 | NUR ---
KUMAR DAUGHTER'S PHONE NUMBER [phone]
--- NOTE | 2019-10-23 03:08 | NUR ---
ASSESMENT: PT REMAIN ALERT AND ORIENT TIMES THREE. DOES GET SOME WHAT FORGETFUL TO SITUATION AND TIME. EASY TO REORIENT. VSS, AFEBRILE. POSSIBLE DC TO [facility] IN THE AM. ATIVAN GIVEN WITH GOOD RESPONSE, PT SLEPT FOR 2 HOURS POST GETTING ATIVAN. SB/SR WITH PVC'S PER MONITOR. LAST BM WAS 10/20/19. TREMORS NOTED AND UNSYMMETRICAL FACIAL APPEARANCE. DOES NOT HAVE A PROBLEM WITH SWALLOWING MEDS. SOMETIMES APPEARS TO BE ANGRY WHICH HE SOON RECONNIZES HIS BEHAVIOR AND ATTEMPTS TO BE NICE. SOME TIMES IT'S JUST "HIM" NO OFFENSE TAKEN, PT IS GOING THROUGH A LOT EMOTIONALLY AND PHYSICALLY. SLOW PROGRESS TOWARDS DC GOALS, WILL CONTINUE TO MONITOR.
[2019-10-23 03:33] VITALS: BP 193/81
[2019-10-23 05:19] LABS: CALCIUM 8.1 mg/dL (8.5-10.1); CREATININE 1.8 mg/dL (0.7-1.3); MAGNESIUM 2.2 mg/dL (1.8-2.4); POTASSIUM 5.1 mmol/L (3.5-5.1)
[2019-10-23 05:53] LABS: HEMATOCRIT 47.6 % (42.0-52.0); MCH 31.9 pg (26.0-34.0); MCHC 33.6 g/dL (28.0-37.0); MCV 95.2 fL (80.0-100.0); RDW 13.7 % (10.5-14.5); WBC 7.1 thou/uL (4.0-11.0)
[2019-10-23 08:01] VITALS: BP 124/52
[2019-10-23 12:20] VITALS: BP 124/54
--- NOTE | 2019-10-23 14:15 | NUR ---
ATTEMPTED TO REACH [employer] FOR AUTHORIZATION 10/22/19, BUT WAS UNABLE TO REACH ANYONE TO INITIATE AUTHORIZATION REQUEST (AFTER 30-45 MINUTES). ATTEMPTED TO REACH [employer] AGAIN THIS AM AGAIN AND AFTER 45 MINUTES AND 2 REHAB TEAM MEMBERS WORKERING ON THIS, FOUND THAT AUTHORIZATION REQUESTS HAD TO BE MADE BY FAX. REQUEST FORM COMPLETED AND CLINICAL INFORMATION SENT THIS DATE. ANTICIPATE RESPONSE EARLY NEXT WEEK. NEW ACCOUNTS REPRESENTATIVE CALLED PATIENT'S SON ON 10/21/19 AND LEFT MESSAGE TO CALL NEW ACCOUNTS REPRESENTATIVE TO DISCUSS ACUTE REHAB OPTION. NO CALL BACK RECEIVED YET. THANK YOU FOR THIS REFERRAL.
[2019-10-23 16:05] VITALS: BP 141/57
[2019-10-23 16:07] LABS: ANA INTERPRETATION Positive (Negative)
[2019-10-23 16:14] LABS: CALCIUM 7.9 mg/dL (8.5-10.1); POTASSIUM 5.3 mmol/L (3.5-5.1)
--- NOTE | 2019-10-23 19:39 | NUR ---
ASSUMMED PT CARE AT APPROXIMATELY 0700, PT A&O X3, FORGETFUL AT TIMES. ASSESSMENT CHARTED. FALL PRECAUTIONS IN PLACE. PT DENIES HAVING CHEST PAIN. PT DENIES HAVING SOB. PT DENIES HAVING ACUTE PAIN. PT AMBULATES UNSTEADY C ASSIST X1. PT AGITATED AND CONFUSED AT TIMES. AT APPROXIMATELY 1600, PT SWEATY AND LETHARGIC. HYPOGLYCEMIA PROTOCOL INITIATED. DR. COE NOTIFIED. RECHECKED BLOOD SUGAR. BLOOD SUGAR STABLE. PT C INCREASED ALERTNESS AND AWAKE. INFORMED PT THAT DR. COE ORDERED A CARRION CATH PLACEMENT DUE TO PT NOT URINATING AND HAVING RETENTION. PT BECAME SEVERELY AGITATED. PULLED OUT IV. WENT TO BATHROOM AND URNIATED. PULLED OFF CLOTHES AND TELE PACK, STARTED CUSSING AND BECOMING MATHIEU C NURSING STAFF AND SPITTING. NOTIFIED DR. COE AND DR. GUTHRIE OF PT BEING SEVERELY AGITATED AND HAVING CONFUSED VERBAGE. DR. COE AND DR. GUTHRIE ENTERED NEW ORDERS, NEW ORDERS IMPLEMENTED. SOFT WRIST RESTRAINTS ORDERED. SEE CARE PLAN. FAMILY NOTIFIED AND EDUCATED FAMILY. FAMILY STATED UNDERSTANDING AND HAD NO NEW QUESTIONS. VITAL SIGNS STABLE. BLOOD SUGAR STABLE. PT BECOMES SLIGHTLY AGITATED WHEN ASKED QUESTIONS. PT CONFUSED. PT IN BED. PT DENIES HAVING FURTHER CONCERNS. GAVE BROADCAST PROGRAM DIRECTOR RN REPORT, RN STATED UNDERSTANDING AND DENIED HAVING FURTHER QUESTIONS.
[2019-10-23 19:44] VITALS: BP 149/85
[2019-10-23 21:06] LABS: SYPHILIS AB Non Reactive (Non Reactive)
[2019-10-24] VITALS (9 sets, daily range): BP systolic 140–177; BP diastolic 61–102
[2019-10-24 05:17] LABS: HEMATOCRIT 46.7 % (42.0-52.0); HEMOGLOBIN 15.5 gm/dL (14.0-18.0); MCH 31.8 pg (26.0-34.0); MCHC 33.2 g/dL (28.0-37.0); MCV 95.8 fL (80.0-100.0); RBC 4.87 mil/uL (4.50-6.00); RDW 13.7 % (10.5-14.5); WBC 10.5 thou/uL (4.0-11.0)
--- NOTE | 2019-10-24 05:25 | NUR ---
ASSUMED PT CARE AT 1900. UPON ARRIVAL TO [facility], PT IS AGITATED. PT IS ALERT BUT CONFUSED. FALL PRECAUTION IN PLACE. PT IS DROWSY THROUGH OUT THE NIGHT, NO SIGN OF DISTRESS NOTED. ASSESSMENT COMPLETED AND DOCUMENTED. FALL PRECAUTION IN PLACE. PT IS STABLE F0R THE NIGHT. CONTINUE TO MONITOR. NO NEEDS AT THIS TIME.
[2019-10-24 05:36] LABS: CALCIUM 7.9 mg/dL (8.5-10.1); CREATININE 1.6 mg/dL (0.7-1.3); MAGNESIUM 2.3 mg/dL (1.8-2.4)
[2019-10-24 14:24] LABS: PROT/CREAT RATIO 1.9; URINE CREATININE-RANDOM* 32.9 mg/dL; URINE PROTEIN-RANDOM* 61.1 mg/dL (<11.9)
--- NOTE | 2019-10-24 18:06 | NUR ---
PT CARE ASSUMED AT 0700. ASSESSMENTS CHARTED. MEDICATION CHARTED. PT INCONTINENT MUCH OF THE TIME, PLACED IN BRIEFS. DAUGHTER SPOKE WITH DR MURRAY ABOUT PRES AND CVA. RESTRAINTS RENEWED AT 1700. PT AGITATED WHEN INTERACTING.
--- NOTE | 2019-10-24 22:31 | NUR ---
AT SHIFT CHANGE, PT WAS ALERT AND COHERENT ENOUGH. PT WAS STABLE AMD TALKING TO RN. AT 20:15, PT WAS RELEASE FROM RESTRAINTS, BED ALARM WAS ON. PT RE-EDUCATED THE PATIENT ON CALLING BEFORE GETTING OUT OF BED. RN WAS CAME BY PT'S ROOM AND CHARGE NURSE AND CLASSICS PROFESSOR WAS AT PATIENT'S BEDSIDE. RN WAS INFORMED THAT PT TRIED GETTING OUT OF BED AND THE BED ALARM SOUNDED, UPON ARRIVAL TO THE ROOM, PT WAS SEEN STANDING AND FALLING BUT DIDNT FALL TO THE FLOOR, INSTEAD HE FELL INTO THE RESTING ARM OF A NEAR BY CHAIR. PT WAS CAUGHT BY CHARGE NURSE AND HE WAS ASSIST BACK TO BED. PT BECAME AGITATED TOWARDS STAFF. AN ORDER FOR A NEW RESTRAINTS WAS OBTAINTED AND NEW RESTRAINTS WERE REAPPLY ON PT. POST FALL ASSESSMENT COMPLETED ON PATIENT, FAMILY NOTIFIED, FINANCIAL PLANNING ANALYST NOTIFIED, NURSE PRACTITONER NOTIFIED. PT DENIES ANY PAIN. CONTINUE TO MONITOR PT. NO FURTHER NEEDS AT THIS TIME.
[2019-10-25 03:30] VITALS: BP 155/68
[2019-10-25 05:07] LABS: HEMATOCRIT 45.5 % (42.0-52.0); HEMOGLOBIN 15.3 gm/dL (14.0-18.0); MCH 31.8 pg (26.0-34.0); MCHC 33.6 g/dL (28.0-37.0); MCV 94.7 fL (80.0-100.0); RBC 4.8 mil/uL (4.50-6.00); RDW 13.6 % (10.5-14.5)
[2019-10-25 05:16] LABS: ALBUMIN 2.6 g/dL (3.4-5.0); CALCIUM 8.2 mg/dL (8.5-10.1); CREATININE 1.5 mg/dL (0.7-1.3); PHOSPHORUS 3.4 mg/dL (2.5-4.9); POTASSIUM 4.8 mmol/L (3.5-5.1)
--- NOTE | 2019-10-25 05:19 | NUR ---
ASSUMED PT CARE AT 1900. PT WAS ALERT AND ORIENTED AT THE BEGINNING OF SHIFT CHANGE. NO SIGN OF DISTRESS NOTED. FALL PRECAUTION IN PLACE. CALL LIGHT WITHIN REACH. ASSESSMENT COMPLETED AND DOCUMENTED. VITAL SIGN STABLE. SCHEDULED MEDS ADMINISTERED TO PT. TOLERATED PO INTAKE. AFTER MED ADMINISTRATION, PT BECAME CONFUSED AND AGITATED. CONTINUE TO MONITOR THROUGH THE NIGHT. NO FURTHER NEEDS AT THIS TIME.
[2019-10-25 09:03] VITALS: BP 168/77
--- NOTE | 2019-10-25 15:06 | NUR ---
PT CARE ASSUMED APPROX 0700. ASSESSMENTS CHARTED. PT DOES NOT APPEAR IN PAIN. NO DISTRESS NOTED. PT REMAINS CONFUSED, AGITATED AND COMBATIVE. BWR REMAIN INTACT. PT AND DAUGHTER EDUCATED AT BEDSIDE. PT UNSAFE TO EAT AT THIS TIME. DRs AWARE. IVF RESTARTED. PT CARE TRANSFERRED TO A NEW NURSE AT THIS TIME.
[2019-10-25 16:00] VITALS: BP 154/73
--- NOTE | 2019-10-25 16:37 | NUR ---
ASSUMED PT'S CARE CLOSE TO 1500; PT. CONFUSED; RESTLESS; WHEN ASKED IF HAVE SOME PAIN; ST. "NO"; ON SOFT RESTRAINS; INCONTINENT; COMPLETE BED CHANGED; EXTERNAL MALE CATHETER APPLIED; REFUSED WATER; ON IV FLUIDS; MONITORING; ASSESSMENT CHARGED; FOLLOWING POC; WILL PASS ON REPORT;
[2019-10-25 19:42] VITALS: BP 176/76
[2019-10-26 03:12] LABS: URINE BILIRUBIN NEGATIVE (Negative); URINE BLOOD TRACE (Negative); URINE CLARITY CLEAR; URINE COLOR YELLOW; URINE GLUCOSE-RANDOM* NEGATIVE (Negative); URINE KETONES 1+ (Negative); URINE LEUKOCYTES-REFLEX NEGATIVE (Negative); URINE NITRITE-REFLEX NEGATIVE (Negative); URINE PROTEIN (DIPSTICK) 2+ (Negative); URINE SPECIFIC GRAVITY 1.025 (1.005-1.035)
[2019-10-26 03:20] LABS: BACTERIA-REFLEX None Seen /HPF (None Seen); CASTS None Seen /LPF (None Seen); CRYSTALS None Seen /LPF (None Seen); MUCUS None Seen strn/LPF (None Seen); SQUAMOUS None Seen /LPF (0-3); URINE RBC None Seen /HPF (0-2); URINE WBC-REFLEX None Seen /HPF (0-5)
[2019-10-26 04:45] VITALS: BP 158/84
[2019-10-26 05:55] LABS: HEMATOCRIT 47.5 % (42.0-52.0); HEMOGLOBIN 15.9 gm/dL (14.0-18.0); MCH 31.8 pg (26.0-34.0); MCHC 33.6 g/dL (28.0-37.0); MCV 94.7 fL (80.0-100.0); RBC 5.01 mil/uL (4.50-6.00); RDW 13.6 % (10.5-14.5)
[2019-10-26 06:03] LABS: CALCIUM 8.2 mg/dL (8.5-10.1); CREATININE 1.3 mg/dL (0.7-1.3); MAGNESIUM 2.3 mg/dL (1.8-2.4); POTASSIUM 4.5 mmol/L (3.5-5.1)
[2019-10-26 07:30] VITALS: BP 164/52
--- NOTE | 2019-10-26 07:37 | HC ---
[facility] [place] [address] CONSULTATION Name: MIC NOGUERA Room #: 214-P ADM IN .R.#: [id number] Admission: 10/20/19 Attend Phys: Fadi Cabral MD Discharge: Date of : 43 Report #: [id number] THIS REPORT FOR: cc: Rahel Alegria MD,Rahel Mauricio,Abdulaziz Aleman MD ~ CC: Fadi Alegria DATE OF SERVICE: 10/24/2019 NEPHROLOGY CONSULTATION REASON FOR CONSULTATION: Chronic kidney disease. HISTORY OF PRESENT ILLNESS: This is a 73-year-old male who presented 4 days ago with an acute CVA. He presented with expressive aphasia and some facial droop. He was found to have evidence of a right middle cerebral artery occlusion. He presented also with severe hypertension, which is not unusual for him. He has been treated for his stroke. He is still having some aphasia. He is continue to have labile blood pressures. With that, his labs have shown a creatinine level that has varied from 1.4 to 2.0 during this hospitalization. We are asked to see him for that. At least 3 members of my group have seen this patient in the office over the years. I had seen him 5 or 6 years ago. Most recently, he has seen Dr. Frye in the office. He has longstanding severe hypertension as well as severe peripheral vascular disease. He also has some diabetes and has documented proteinuria of a moderate amount. Blood pressure has always been somewhat difficult. He runs a baseline creatinine level between 1.6 and 1.9 on most days. Previously in reviewing office notes, he has been very well managed with a moderate dose of losartan. When he saw Dr. Frye last in the office, His blood pressure was 110/60 on 100 mg of losartan a day. Again, he has had moderate proteinuria. He has also had a previous renal artery stent placed many years ago. Most recent imaging of his kidneys was fairly unremarkable. PAST MEDICAL HISTORY: Longstanding hypertension, extensive atherosclerotic coronary artery disease as well as peripheral vascular disease. He has had numerous lower extremity stents and angioplasties done. He had a 4-vessel CABG done in 2003. He has also had a remote right renal artery stents and carotid artery stent. He has had a previous seizure disorder. During one of his hypertensive episodes, he presented with PRES syndrome. He has also had a previous cholecystectomy, tonsillectomy. CURRENT MEDICATIONS: Amlodipine 5 mg b.i.d., carvedilol 6.25 mg b.i.d., tamsulosin 0.4 mg daily, Plavix, linagliptin 5 mg daily, Lovenox 30 mg daily, [facility] [address] [place] [address] CONSULTATION Name: MIC NOGUERA Room #: 214-P [facility] IN M.R.#: [id number] Admission: 10/20/19 Attend Phys: Fadi Cabral MD Discharge: Date of : 43 Report #: [id number] some p.r.n. lorazepam and Haldol, atorvastatin 40 mg daily, and aspirin 81 mg daily. ALLERGIES: INCLUDE MORPHINE. FAMILY HISTORY: Father had heart disease and at 83. Mother had diabetes, at age 63. 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 He says he lives in [place], [place] with his son and his son's family. The son helps him in getting his medications, but he claims he has been out of some of his medications. REVIEW OF SYSTEMS: He has been very restless according to the nursing staff, at times is required to be restrained. He states he has been eating. He denies dyspnea or cough. No headache at this time. He states he has no trouble passing urine. PHYSICAL EXAMINATION: GENERAL: Frail 73-year-old appearing male who is awake and responsive, although he still does exhibit some expressive aphasia. VITAL SIGNS: Blood pressures recently 170/65 is low yesterday is 124/52 and as high as 193/81, heart rate 70, temperature 98.0, oxygen saturation 93%. HEENT: Shows pupils are equal and reactive. Sclerae nonicteric. Oral mucosa is moist. NECK: Supple. I hear no carotid bruits. CHEST: Clear bilaterally. HEART: Has a regular rate and rhythm. ABDOMEN: Active bowel sounds, is nontender. EXTREMITIES: Show diminished pedal pulses. He has no peripheral edema. NEUROLOGIC: He is moving all extremities at this time. LABORATORY DATA: From today, sodium 135, potassium 5.0, chloride 104, bicarbonate 25, BUN 31, creatinine 1.6, glucose 94, total protein 7.9, albumin 2.3. White count 10.5, hemoglobin 15.5, hematocrit 46.7, platelets 142,000. Urinalysis from admission, specific gravity of 1.020, pH 7.0, 3+ protein. ASSESSMENT: 1. New onset cerebrovascular accident, he is 4 days in. He has had some mild recovery, still showing some expressive aphasia. Obviously post-cerebrovascular accident, we will want to keep his blood pressure under moderate control and not drop it too low, so we will add medications or other judiciously. 2. Chronic kidney disease, stage 3. This is longstanding. He has both diabetic nephropathy and severe vascular changes. He has had longstanding hypertension. He has moderate proteinuria. This would best be served by resuming his angiotensin receptor delmi. I will start him on a partial dose [facility] [address] [place] [address] CONSULTATION Name: MIC NOGUERA Room #: 214-P [facility] IN [facility].#: [id number] Admission: 10/20/19 Attend Phys: Fadi Cabral MD Discharge: Date of : 44 Report #: [id number] of 50 mg daily and see how he does. In the interim, he is on a fairly large dose of amlodipine and I will cut that back to once a day in the morning ____ the losartan services in the evening medication. He is also on b.i.d., carvedilol. In the past, his blood pressure has been very smooth backed up in the past, his blood pressure has been more smooth on the losartan and would like to have it around for help with proteinuria. 3. Extensive atherosclerotic vascular disease. 4. Coronary artery disease. PLAN: 1. I will cut his amlodipine back to 5 mg daily. 2. I will start losartan 50 mg at bedtime. 3. Re-verify proteinuria if possible. 4. Recheck labs. 5. We will shoot for moderate blood pressure control with his recent CVA. 6. We will follow along the care of this patient. <ELECTRONICALLY SIGNED> By: Abdulaziz Mauricio MD 10/26/19 0737 [id number] Abdulaziz Mauricio MD /nt
--- NOTE | 2019-10-26 07:49 | NUR ---
CONFUSED.AGITATED.ON BILATERAL SOFT WRIST RESTRAINTS.ABLE TO TAKE PARTIAL OF HIS NIGHT MEDS.IV FLUIDS INFUSING.MONITOR SHOWS SA.POC CONTINUED.
--- NOTE | 2019-10-26 10:57 | NUR ---
FOLLOWED UP WITH [facility] REGARDING REQUEST FOR AUTHORIZATION FOR ACUTE REHAB THAT WAS SUBMITTED ON Saturday10/23/19. PEER TO PEER DUE TODAY BY 12:00 CENTRAL TIME AT [phone] OPTION 5. THIS INFORMATION COMMUNICATED TO DR. COE WHO INDICATED THAT Pt WAS NOT READY FOR D/C YET. Pt IS CURRENTLY IN SOFT RESTRAINTS, CONFUSED/AGITATED, AND PENDING CTA OF HEAD/NECK. CALLED BACK TO [facility] AND SPOKE WITH PRIYANKA REGARDING SITUATION. PER PRIYANKA, AUTH REQUEST WAS WITHDRAWN/VOIDED RATHER THAN DENYING REQUEST D/T MEDICAL INSTABILITY. IF Pt STILL APPROPRIATE FOR ACUTE REHAB, WILL NEED TO SUBMIT FOR AUTHORIZATION AGAIN WHEN MEDICALLY STABLE. SPOKE WITH CM/FAUSTO WITH THIS UPDATE WELL. WILL CONTINUE TO FOLLOW Pt.
[2019-10-26 12:00] VITALS: BP 105/48
--- NOTE | 2019-10-26 13:06 | NUR ---
Spoke with [facility] due to timeframe 5N would need to reeval acute rehab and submit for auth. patient not medically stable to pursue [facility] at this time. Cont to follow.
[2019-10-26 17:00] VITALS: BP 147/62
--- NOTE | 2019-10-26 17:17 | NUR ---
PT CARE ASSUMED APPROX 0700. ASSESSMENTS CHARTED. PT DENIES PAIN AND SOA. MENTATION IMPROVED THIS SHIFT. ALERT AND ORIENTED. FOLLOWING COMMANDS. MINIMALLY IMPULSIVE. FALL PRECAUTIONS IN PLACE. NO FAMILY TO BEDSIDE THIS SHIFT. PT TOLERATING POC. RESTRAINTS DC'D THIS AM APPROX 0800. APPETITE IMPROVED. NO DISTRESS NOTED.
[2019-10-26 20:00] VITALS: BP 108/48
[2019-10-27 04:04] VITALS: BP 107/50
--- NOTE | 2019-10-27 06:22 | NUR ---
PT AO X 1. CONFUSED . COMBATIVE AT THE BEGINNING OF THE SHIFT. BUT PT CURRENTLY EASY TO REDIRECT. PREFERS TO USE THE BATHROOM DESPITE UNSTEADY GAIT. ASSIST OF 2 WITH AMBULATION. SA ON THE MONITOR. DAUGHTER UPDATED ON PATIENTS CONDITION.NO FURTHER CONCERNS. WILL CONTINUE TO MONITOR AND FOLLOW POC.
[2019-10-27 07:52] VITALS: BP 146/56
[2019-10-27 09:51] LABS: HEMATOCRIT 41.5 % (42.0-52.0); MCH 32.1 pg (26.0-34.0); MCHC 33.8 g/dL (28.0-37.0); MCV 94.9 fL (80.0-100.0); RBC 4.37 mil/uL (4.50-6.00); RDW 13.5 % (10.5-14.5); WBC 8.5 thou/uL (4.0-11.0)
[2019-10-27 09:57] LABS: CALCIUM 7.6 mg/dL (8.5-10.1); CREATININE 1.8 mg/dL (0.7-1.3); MAGNESIUM 2.3 mg/dL (1.8-2.4); POTASSIUM 4.8 mmol/L (3.5-5.1)
[2019-10-27 11:20] VITALS: BP 120/49
--- NOTE | 2019-10-27 12:33 | HC ---
[facility] [place] [address] CONSULTATION Name: MIC NOGUERA Room #: 214-P ADM IN M.R.#: [id number] Admission: 10/20/19 Attend Phys: Fadi Cabral MD Discharge: Date of : 43 Report #: [id number] THIS REPORT FOR: cc: Rahel Alegria MD, Nora P. MD Al-Mubaslat, Ahmad MD ~ CC: Fadi Alegria DATE OF SERVICE: 10/20/2019 ENDOCRINE CONSULTATION NOTE CONSULTING PHYSICIAN: Dr. Cabral. REASON FOR CONSULTATION: Uncontrolled type 2 diabetes mellitus, hypoglycemia. HISTORY OF PRESENT ILLNESS: This is a 73-year-old male patient whose medical background is significant for multiple medical issues including type 2 diabetes mellitus, hyperlipidemia, coronary artery disease as well as history of seizures, who presented to the ER on 10/20/2019 with complaints of headaches as well as altered mental status and hallucinations. The patient was brought in by his daughter who noted that these issues have evolved over a period of 3 days. The patient was found to be significantly hypertensive and it was decided to admit him for further care and monitoring. Again, the patient is known to have type 2 diabetes mellitus, which he believes he has had for over 10 years. Having reviewed his medical records, it appears that he is only maintained on sitagliptin 100 mg daily. The patient acknowledges that he has not been monitoring his blood glucose at all at home. He is not aware of issues pertaining to diabetic retinopathy, but does not believe that he has been following with eye doctors recently. The patient is known to have chronic kidney disease stage 4 as well as coronary artery disease, status post CABG x 4 in March 2005. Also, the patient has extensive peripheral arterial disease, status post left SFA stent placement, left internal carotid stent placement as well as left SFA stents x 3 and 2 right iliac stents as well as a right renal stent placement between 2004 and 2007. The patient is known to have hyperlipidemia and is maintained on atorvastatin therapy at 40 mg daily. He is known to have hypertension and is maintained on metoprolol 50 mg b.i.d., amlodipine 10 mg daily, but is not exactly sure as to the usual level of his blood pressure control. On admission to the hospital, the patient's blood glucose was in the mid-100s; however, as the patient recorded a blood glucose reading up to 151. On 10/23/2019, he was treated with a low intensity [place] [address] CONSULTATION Name: MIC NOGUERA Room #: 214-P [facility] IN .R.#: [id number] Admission: 10/20/19 Attend Phys: Fadi Cabral MD Discharge: Date of : 44 Report #: [id number] developed severe hypoglycemia afterwards to undetectable levels below 20. It was at that point in time that I was contacted by Dr. Cabral to advise on diabetes management. At that point in time, the patient was started on linagliptin 5 mg daily and remains on it for the past 3 days with no further recorded hypoglycemia. REVIEW OF SYSTEMS: CONSTITUTIONAL: Fatigue, tiredness, but not fever or chills or changes in body weight. HEENT: Negative for sore throat, ear drainage, sinus pain. PULMONARY: Occasional shortness of breath and cough, but no hemoptysis. CARDIAC: Negative for chest pain, palpitations, syncope or presyncope. GASTROINTESTINAL: Occasional nausea, but no vomiting or significant changes in bowel movement frequency. NEUROLOGY: Noted for occasional lightheadedness, dizziness, no loss of consciousness. The patient has a history of seizures, history of CVA. SKIN: Negative for rash, ulceration or other major abnormalities. PAST MEDICAL HISTORY: 1. Type 2 diabetes mellitus. 2. Hypertension. 3. Hyperlipidemia. 4. CAD, status post CABG in 2004. 5. Peripheral arterial disease, status post multiple stent placements in left SFA , right iliac, right renal artery and left internal carotid stent placements in years from 2004 to 2007. 6. History of CVA. 7. CKD stage 4. 8. Essential tremors. 9. BPH. OUTPATIENT MEDICATIONS: Include sitagliptin 100 mg daily, Lopressor 50 mg b.i.d., Lipitor 40 mg at bedtime, primidone 50 mg at bedtime, Flomax 0.4 mg daily, amlodipine 10 mg daily, aspirin 81 mg daily, tramadol 50 mg t.i.d., [place] 5/325 mg q. 4 hours daily. ALLERGIES: He is allergic to MORPHINE. FAMILY HISTORY: Noncontributory. SOCIAL HISTORY: The patient lives with his daughter and 2 granddaughters. He smokes a pack a day. Denies use of alcohol or illicit drugs. PHYSICAL EXAMINATION: GENERAL: male patient lying in bed, does not seem to be in pain or distress. [facility] [address] [place] [address] CONSULTATION Name: MIC NOGUERA Room #: 214-P ADM IN M.R.#: [id number] Admission: 10/20/19 Attend Phys: Fadi Cabral MD Discharge: Date of : 43 Report #: [id number] VITAL SIGNS: Blood pressure is 105/48 mmHg, heart rate is 94 beats per minute, respirations 16 per minute, temperature 36.5 degrees Celsius. CONSTITUTIONAL: The patient is lying in bed supine, does not appear to be in pain or distress. HEENT: Anicteric sclerae. Intact extraocular motions. NECK: Supple, without thyromegaly. CHEST: Noted for limited air entry bilaterally with scattered rales and rhonchi. HEART: Regular rate and rhythm without murmurs or gallops. ABDOMEN: Soft, lax. No guarding. EXTREMITIES: Lower extremity exam noted for trace ankle edema. I cannot appreciate pedal pulses. Sensation to light touch is diminished. NEUROLOGIC: Awake, alert and oriented to time, place and person. The remainder of his examination is noted for right facial drooping, generalized weakness. PSYCHIATRIC: Flat mood and affect. Normal thought process. LABORATORY RESULTS: Blood glucose values are as noted above, most recent was 141 mg/dL, white blood count 6.0, hemoglobin 15.9, hematocrit 47.5, platelets 148. Sodium 143, potassium 4.5, chloride 109, carbon dioxide 26, anion gap 8, BUN 18, creatinine 1.3, estimated GFR 54, calcium 8.2. Hemoglobin A1c is 6.7%. TSH is 0.431. Vitamin B12 of 251. Folate 10.2. ASSESSMENT AND PLAN: 1. Type 2 diabetes mellitus. As noted above, the patient is maintained on Januvia monotherapy as an outpatient. Although, he does not have any blood glucose data to share or provide, his hemoglobin A1c is suggestive of adequate control on this line of therapy. As noted above, the patient demonstrated profound response to low-dose insulin and developed severe hypoglycemia. This said, I would rather stay clear of Humalog supplemental scale for the time being and resort to linagliptin monotherapy to mimic his home therapy, which he has done well with so far and blood glucose values remaining in target range. I will continue the current regimen and maintain blood glucose monitoring a.c. and at bedtime. 2. Hypoglycemia. The patient developed profound, severe hypoglycemia in response to minimal insulin intake as per the Humalog sliding scale low intensity, demonstrating high insulin sensitivity. In addition to keeping the patient off Humalog insulin intake, the patient has been maintained on linagliptin monotherapy and has been hypoglycemia-free for the past 72 hours since this change was made. We will continue to monitor his blood glucose values routinely and respond to hypoglycemia as per the [facility]'s hypoglycemia protocol. 3. Hypertension. The patient's level of blood pressure control is adequate on the current regimen of carvedilol, hydralazine, losartan and amlodipine. He is to continue with the same regimen. 4. Hyperlipidemia. The patient is maintained on atorvastatin 40 mg daily and tolerates it well, he is to continue [place] [address] CONSULTATION Name: MIC NOGUERA Room #: 214-P [facility] IN M.R.#: [id number] Admission: 10/20/19 Attend Phys: Fadi Cabral MD Discharge: Date of : 43 Report #: [id number] I have reviewed the patient's clinical care notes, laboratory data, radiology studies and other pertinent information for over 35 minutes in addition to my encounter time with the patient. I certainly appreciate this consultation by Dr. Cabral. <ELECTRONICALLY SIGNED> By: Uriah Colon MD 10/27/19 1233 [id number] Uriah Colon MD /nt
[2019-10-27 15:05] VITALS: BP 111/46
--- NOTE | 2019-10-27 15:12 | NUR ---
Patient accepted to [facility]. Left message with son to discuss. [facility] in process of authorization.
--- NOTE | 2019-10-27 17:07 | NUR ---
PT CARE ASSUMED APPROX 0700. PT DENIES PAIN AND SOA. ASSESSMENTS CHARTED. UP WTIH P/T AND O/T THIS SHIFT. MOBLIZING WELL. REHAB CONSULTED. PT TOLERATING POC. NO IMPULSIVE BEHAVIORS NOTED. DAUGHTER AT BEDSIDE BRIEFLY THIS SHIFT. DID NOT SPEAK TO NURSING WHILE PRESENT. BETA REGINALDO HELD THIS EVENING AFTER PT'S BP SLIGHTLY LOW AND PT REPORTED LIGHT HEADEDNESS. IVF STARTED AT THIS TIME. PT REPORTS FEELING BETTER AT THIS TIME. RESTING IN CHAIR COMFORTABLY AT THIS TIME. NO DISTRESS NOTED.
[2019-10-27 20:00] VITALS: BP 134/60
--- NOTE | 2019-10-28 03:52 | NUR ---
PT STILL CONFUSED. ORIENTED TO SELF. DENIES PAIN. VITALS STABLE. NS 80 MLS IV. BED ALERM ON. PT PERIODICALLY TRIES TO CLIMB OUT OF BED, BUT AFTER URINAL USE PT EASY TO REDIRECT. NO OTHER CONCERNS. WILL KEEP MONITORING, PROMOTE SAFETY AND FOLLOW POC.
[2019-10-28 04:00] VITALS: BP 145/44
[2019-10-28 06:05] LABS: HEMATOCRIT 41.7 % (42.0-52.0); HEMOGLOBIN 13.8 gm/dL (14.0-18.0); MCH 31.4 pg (26.0-34.0); MCHC 32.9 g/dL (28.0-37.0); MCV 95.2 fL (80.0-100.0); RBC 4.39 mil/uL (4.50-6.00); RDW 13.6 % (10.5-14.5); WBC 7.6 thou/uL (4.0-11.0)
[2019-10-28 06:33] LABS: ALBUMIN 2.3 g/dL (3.4-5.0); CALCIUM 7.5 mg/dL (8.5-10.1); CREATININE 1.5 mg/dL (0.7-1.3); MAGNESIUM 2.6 mg/dL (1.8-2.4); PHOSPHORUS 4.4 mg/dL (2.5-4.9); POTASSIUM 4.8 mmol/L (3.5-5.1)
[2019-10-28 08:00] VITALS: BP 123/72
--- NOTE | 2019-10-28 08:39 | NUR ---
PATIENT IS NOW STABLE MEDICALLY FOR DISCHARE FROM ACUTE HOSPITAL TO ACUTE REHAB FACILITY. AUTHORIZATION RESUBMITTED ON 10/27/19. AWAITING RESPONSE FROM INSURANCE. MAIL INSERTER AWARE.
--- NOTE | 2019-10-28 11:51 | NUR ---
PATIENT'S INSURANCE DENIED ACUTE REHAB STAY. SKILLED HAS BEEN APPROVED IF ACCEPTING FACILITY FOUND AND INSURANCE INFORMED WITHIN 48 HOURS. IF AFTER 48 HOURS, WILL NEED A NEW AUTH REQUEST AND NEW CLINICAL INFORMATION SENT. IF APPEAL DESIRED, FAX AT [phone] WITH PATIENT'S NAME, ADDRESS, MEMEBER #, REASON FOR APPEAL AND CLINICAL INFORMATION TO BACK US REASON. PHONE NUMBER FOR APPEAL . DR. GRAVES AND SOCIAL WORK INFORMED.
[2019-10-28 12:00] VITALS: BP 147/50
--- NOTE | 2019-10-28 12:59 | NUR ---
Insurance denied [facility] acute rehab. It is reported they will auth skilled. Left [facility] [employer] skilled provider in room. Sp with son who reports sister designated visitor. She was not in room son aware list in room to review. [email or web address] following.
--- NOTE | 2019-10-28 13:21 | NUR ---
Spoke at length with dtr who feels she is not being heard regarding her fathers confusion. She reports he has similiar symptoms before and was in rehab for 6months. She reports she has spoken with Dr Flores and reports his confusion is not due to stroke, its not psych or dementia. She reports he is not right in his head. Discussed her possibly making outpatient apt for neurology in future. Offered to having phys call her regarding her concerns. She denied needing call and will review options of post acute care.
[2019-10-28 16:00] VITALS: BP 111/63
[2019-10-28 19:15] VITALS: BP 158/61
[2019-10-29] VITALS (8 sets, daily range): BP systolic 113–185; BP diastolic 69–83
--- NOTE | 2019-10-29 05:40 | NUR ---
PT WAS A&O X3-4 AT HS KNEW HE WAS IN THE HOSPITAL BUT DID NOT KNOW WHICH HOSPITAL. DELAYED RESPONSES. COGNITIVE IMPAIRMENT. PT WAS ABLE TO ANSWER SOME BASIC QUESTIONS DURING HS ASSESSMENT. PT MORE CONFUSED LATER SETTING OFF THE ALARM SEVERAL TIMES ATTEMPTNG TO GET OUT OF BED EASILY RE-DIRECTED. THOUGHT HE WAS SEEING SOMETHING ON THE WALL WAS A TV CORD. COTINENT BUT INCONT OF URINE X1. HIGH FALL RISK BED ALARMS AT ALL TIMES. ACHS
--- NOTE | 2019-10-29 06:32 | NUR ---
PT NOT ABLE TO FOLLOW COMMANDS D/T AMS NOT A NEW FINDING. REQUIRES REDIRECTIONS
[2019-10-29 06:46] LABS: ALBUMIN 2.5 g/dL (3.4-5.0); CALCIUM 7.8 mg/dL (8.5-10.1); CREATININE 1.2 mg/dL (0.7-1.3); PHOSPHORUS 3.3 mg/dL (2.5-4.9); POTASSIUM 5.1 mmol/L (3.5-5.1)
--- NOTE | 2019-10-29 13:59 | NUR ---
FA[place]ED REF[place] [facility] [place] CONFIRMATION AND LEFT MSG WITH BRITT IN ADM. FAXED REFERRAL TO [facility] RECEIVED CONFIRMATION AND LEFT MSG WITH HERLINDA IN ADM. FAXED REFERRAL TO [facility] RECEIVED CONFIRMATION AND LEFT MSG WITH JEREMY IN ADM. FAXED REFERRAL TO [facility] SPOKE WITH OUMAR IN ADM SHE RECEIVED REFERRAL AND WILL ACCEPT SHE WILL SUBMIT FOR AUTH TODAY PT IS DC READY. DP TO FOLLOW.
--- NOTE | 2019-10-29 17:21 | NUR ---
[facility] visited with the pt and his dtr Judie [phone] at bedside this morning to discuss dc planning. Pt having increased aggitation today likely due to "brain swelling" as reported by pt's dtr and the attending. 5N acute rehab referral was denied by pt's insurance plan and peer to peer appeal was denied as well. SNF referrals discussed and listing reviewed. dtr interested in [facility] or [facility] due to location and in network with ins plan. Dc medical planner faxed referrals. [facility] accepted and has submitted for insurance authorization. Pt will need an updated covid test with in 48hrs of dc. Nursing notified. Due to the holiday , auth is not anticipated until Saturday. Dtr and care team updated.
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
[2019-10-30] VITALS (8 sets, daily range): BP systolic 118–186; BP diastolic 44–114
--- NOTE | 2019-10-30 03:27 | NUR ---
RECEIVED IN BED AWAKE,CONFUSED AND IMPULSIVE. DISORIENTED X 4. DOES NOT FOLLOW ANY VERBAL COMMANDS. DURING SHIFT CHANGE, PT WAS FOUND TO BE IMPULSIVE AND AGIATAED DESPITE THE EFFORT TO PHARMACEUTICALLY MANAGE PT'S SYMPTOMS PRIOR TO SHIFT CHANGE. WITH IVF RUNNING, PT WOULD STILL TRY TO LEAVE THE BED. CALLED ELIZABETH VARGHESE IMPORT COORDINATION AND PRODUCTION HEAD FOR [facility] AND OBTAINED AN ORDER TO RESTRAINT PT WITH SOFT RESTRAINTS. HOUSE SUP NOTIFIED AND SON TADEO WAS ALSO NOTIFIED VIA PHONE FOR INITIATION OF RESTRAINTS. VSS. FREQUENT VISUAL CHECKS RENDERED FOR PT SAFETY. PT WOULD BE OFTEN FOUND WITH LEGS HANGING OUT OF THE BED AND SWINGING LEGS AT STAFF. REAAPLICATION OF RESTAINTS WERE OFTEN RENDRED PER PT CONT TO PULL HIS ARMS. PT SPAT OUT ALL PO AND REFUSE ANY WATER OR NOURISHMENT. REPORTED TO GEOLOGICAL E LOGGER OF REFUSAL. AROUND 0130 PT STARTED YEALLING AND TUGGING ON THIS ARMS. VSS. NO S/S ACUTE DISTRESS NOTED OR REPORTED AT THIS TIME. WILL CONT TO MONITOR FOR ANY CHAGES IN CONDITION.
--- NOTE | 2019-10-30 20:04 | NUR ---
ASSUMMED PT CARE AT APPROXIMATELY 0700. PT DISORIENTED X4 AT BEGINNING OF SHIFT. AT END OF SHIFT, PT ALERT TO SELF. PT DROWSY THROUGHOUT SHIFT. PT NON-IMPULSIVE. RESTRAINTS DC. PT DENIED WANTING BREAKFAST OR LUNCH. PT BECAME MORE ALERT AT END OF SHIFT. PT ATE DINNER. PT COMFORTABLE IN BED. VITAL SIGNS STABLE. BLOOD SUGARS STABLE. EDUCATED FAMILY ABOUT POC. FAMILY STATED UNDERSTANDING AND DENIED HAVING FURTHER QUESTIONS. SPOKE C CASE MANAGEMENT. [facility] ACCEPTED PT. COVID TEST OBTAINED AND SENT TO LAB. PT DENIES HAVING OTHER CONCERNS.
--- NOTE | 2019-10-31 02:09 | NUR ---
PATIENT SLEEPY AND DOESN'T WANT TO BE BOTHERED.DOESN'T TRY TO GET OUT OF BED.DENIES PAIN AND NO SIGNS THAT PATIENT IS IN PAIN.NO SOB NOTED.MONITOR SHOWS SA.POC CONTINUED.
[2019-10-31 04:45] VITALS: BP 152/52
[2019-10-31 05:23] LABS: HEMATOCRIT 45.8 % (42.0-52.0); MCH 31.2 pg (26.0-34.0); MCHC 32.8 g/dL (28.0-37.0); MCV 95.3 fL (80.0-100.0); RBC 4.8 mil/uL (4.50-6.00); RDW 13.5 % (10.5-14.5); WBC 7.8 thou/uL (4.0-11.0)
[2019-10-31 05:44] LABS: CALCIUM 7.9 mg/dL (8.5-10.1); CREATININE 1.1 mg/dL (0.7-1.3); POTASSIUM 5.2 mmol/L (3.5-5.1)
[2019-10-31 08:38] VITALS: BP 182/67
[2019-10-31 12:43] VITALS: BP 135/60
[2019-10-31 17:02] VITALS: BP 143/57
--- NOTE | 2019-10-31 18:05 | NUR ---
ASSESSMENTS AND INTERVENTIONS DOCCUMENTED. NO MAJOR CONCERNS THROUGH OUT THE SHIFT. PATIENT A LITTLE AGITATED THIS MORNING. BUT WAS CALM THROUGH OUT THE SHIFT. DAUGHTER VISITING THE PATIENT TWICE. PATIENT SUPPOSED TO DISCHARGE TO [facility]. PATIENT IS PROGRESSING TOWARDS GOALS AT TIME EVIDENCE BY REMIANING CALM AND BEING READY FOR DISCHARGE.
[2019-10-31 20:15] VITALS: BP 130/70
--- NOTE | 2019-11-01 04:37 | NUR ---
PT IS ALERT TO SELF, HAS TREMORS.ON ROOM AIR. LUNGS ARE CLEAR. VERBALZIES NO COMPLAINTS OF PAIN NOTED. BEDSIDE URINAL IF NEEDS TO VOID. 2/1 PULSES AND NO EDEMA PRESENT. SINUS ARTHYMIA NOTED ON THE MONITOR. TURNS SELF IN BED AND REPOSITIONS HIMSELF. WILL CONTINUE TO ASSESS AND MONITOR PER NURSING. CALL LIGHT WTIHIN REACH IF NEEDS ASSISTANCE
[2019-11-01 07:23] VITALS: BP 154/63
--- NOTE | 2019-11-01 16:24 | NUR ---
REPORT CALLED TO ALFRED ON 436. WILL TRANSPORT TO ROOM.
[2019-11-01 17:03] VITALS: BP 135/61
[2019-11-01 20:03] VITALS: BP 177/75
--- NOTE | 2019-11-01 20:28 | NUR ---
PATIENT TRANSFERED FROM AROUND 1700. PT IS ALERT XORIENTED X SELF. ON ROOM AIR. ONE PERSON ASST.PT WILL NOT CALL FOR HELP, WILL TRY TO GET OUT OF THE BED. FALL PRECAUT IN PLACE. IV LEFT FA SALINE LOCKED. REGULAR DIET, SWALLOW PILLS WHOLE. BRUISES ON BODY. SKIN TEAR ON LEFT ARM NOTED AFTER PATIENT TRING TO GET OUT OF BED AND LEANING ON THE SIDE RAILS. CLEANE WITH NS AND DRESSED. HAD 2 BOWEL MOVEMENTS DURING THE SHIFT. SHIFT REPORT GIVEN TO ALFREDITO.
[2019-11-01 23:30] VITALS: BP 160/80
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
[2019-11-02 08:11] VITALS: BP 138/46
--- NOTE | 2019-11-02 11:35 | NUR ---
ASSUMED CARE OF THE PT AT 0700. PT IS VERY CONFUSED AND COMBATIVE, REFUSED ALL MORNING MEDS AND NICOTENE PATCH, SEE EMAR. PT REFUSED BREAKFAST, PT/OT. BS IS NORMAL. PT REFUSED TO WEAR SCD'S. L FOREARM DRY AND INTACT. PT IS RA. FALL PRECAUTIONS IN PLACE, BED IN LOWEST POSITION/ALARM ON AND CALL LIGHT IS WITHIN REACH. WILL CONTINUE TO MONITOR THE PT
[2019-11-02 14:44] LABS: HEMATOCRIT 42.9 % (42.0-52.0); HEMOGLOBIN 14.1 gm/dL (14.0-18.0); MCH 31.4 pg (26.0-34.0); MCV 95.3 fL (80.0-100.0); RBC 4.5 mil/uL (4.50-6.00); RDW 13.5 % (10.5-14.5); WBC 6.5 thou/uL (4.0-11.0)
[2019-11-02 14:56] LABS: ALBUMIN 2.3 g/dL (3.4-5.0); CALCIUM 8.1 mg/dL (8.5-10.1); POTASSIUM 4.4 mmol/L (3.5-5.1); TOTAL BILIRUBIN 0.2 mg/dL (0.2-1.0); TOTAL PROTEIN 5.7 g/dL (6.4-8.2)
[2019-11-02 15:16] VITALS: BP 158/68
--- NOTE | 2019-11-02 16:11 | NUR ---
jaki goyal has auth. awaiting covid test.
--- NOTE | 2019-11-02 17:07 | NUR ---
ASSUMED CARE OF PT AT 1400. AGREE WITH PREVIOUSE ASSESSMENT. PT REFUSED ALL HIS MEALS AND MEDICATION TODAY. COVID SWABBED FOR DISCHARGE.
[2019-11-02 17:39] VITALS: BP 164/69
[2019-11-02 19:23] VITALS: BP 171/66
[2019-11-02 22:35] VITALS: BP 160/50
--- NOTE | 2019-11-03 01:24 | NUR ---
ASSUMED PT CARE AT 1900. PT SLEEPING UPON SHIFT CHANGE, BECAME COMBATIVE WHEN THE NETSUITE DEVELOPER TRIED TO GET VITALS. REFUSES TO WAKE UP FOR MEDICATION. BS WNL. HAS NOT TRIED TO GET UP TONIGHT, JUST SNORING IN BED ALL SHIFT. NOT WILLING TO EAT/DRINK AND PARTICPATE IN ANY CARES. INCONTINENT OF B&B. WILL TALK/YELL BUT IT DOESN'T MAKE SENSE TO THE QUESTION THAT WAS ASKED. WILL CONTINUE TO MONITOR.
[2019-11-03 03:31] VITALS: BP 145/81
[2019-11-03 10:19] VITALS: BP 161/53
[2019-11-03] MEDS ORDERED: CLOPIDOGREL75 MG PO (13:32)
[2019-11-03] MEDS ORDERED: NAMENDA 5 MG TAB5 M1 PO (13:33)
[2019-11-03] MEDS ORDERED: COZAAR 50 MG TA50 MG PO (13:33)
[2019-11-03] MEDS ORDERED: CARVEDILOL12.5 MG PO (13:33)
[2019-11-03] MEDS ORDERED: NORVASC5 MG PO (13:33)
[2019-11-03] MEDS ORDERED: B-12500 MCG PO (13:34)
[2019-11-03] MEDS ORDERED: TRADJENTA5 MG PO (13:34)
[2019-11-03] MEDS ORDERED: VITAMIN D21250 MC1 PO (13:34)
[2019-11-03] MEDS ORDERED: LANTUS100 UNIT/M SUBQ (13:34)
[2019-11-03] MEDS ORDERED: KEPPRA XR500 MG PO (13:35)
[2019-11-03] MEDS ORDERED: VITAMIN B-6100 MG PO (13:35)
--- NOTE | 2019-11-03 14:25 | NUR ---
PT IS AOX1-2, VSS, NO C/O PAIN. PT HAD A BS OF 37 THIS MORNING, NOW BS IS 144. PT IS UP IN HIS CHAIR, IV IS PATENT/SL. TOLERATING DIET WELL, TOOK MORNING MEDS CRUSHED WITH YOGART. NO COMBATIVE BEHAVIOR. EDUCATED COMMERCIAL ROOFING ESTIMATOR LIGHT USAGE, BED IN LOW POSITION, WILL CONT. TO MONITOR.
--- NOTE | 2019-11-03 16:41 | NUR ---
PT TO DC TO [facility] THIS DAY. CM FAXED ORDERS AND COVID TEST. CHART COPY MADE. CM NOTIFIED PT'S DTR KUMAR SHE IS AWARE AND AGREEABLE. TRANSPORT ARRANGED FOR [id number]. NO OTHER CM INTRVENTION INDICATED. CASE CLOSED.
--- NOTE | 2019-11-03 17:03 | HC ---
[facility] [place] [address] CONSULTATION Name: MIC NOGUERA Room #: 436-P [facility] IN .R.#: [id number] Admission: 10/20/19 Attend Phys: Fadi Cabral MD Discharge: 11/03/19 Date of : 43 Report #: [id number] THIS REPORT FOR: cc: Rahel Alegria MD, Nora P. MD Forman, John M. MD ~ CC: Fadi Alegria DATE OF SERVICE: 10/26/2019 We were asked to see the patient. HISTORY OF PRESENT ILLNESS: The patient is a 73-year-old admitted on 10/20/2019 with mental status changes and hallucinations at home for an unknown duration. Daughter brought him to the Emergency Department and stated that 3 days prior to admission the patient was normal. However, the patient had not visited her in the last 3 days and when she did finally see the patient, he was having active visual hallucinations and altered mental status. The daughter further stated that the patient was having difficulty finding his speech and was very agitated. Daughter brought the patient to the Emergency Department for further evaluation. In the Emergency Department, it was reported that the patient had not taken his medication for an unknown duration up to 3 weeks. Daughter states patient has some home health services, but has not been taking medication even with their assistance. PAST MEDICAL HISTORY: Significant for CREST syndrome, hypertension, diabetes mellitus type 2, arthritis, peripheral vascular disease, stroke, prostatic hypertrophy, chronic renal dysfunction stage IV, hyperlipidemia. SOCIAL HISTORY: The patient denies alcohol use. The patient is a current smoker. Consumes a pack a day. Denies recreational drug use. FAMILY HISTORY: The patient has a brother with diabetes and a brother with coronary artery disease. ALLERGIES: MORPHINE CAUSES SEVERE AGITATION. Other pertinent history is that the patient has a left carotid stent. CURRENT MEDICATIONS: At home include amlodipine, carvedilol, tamsulosin, Plavix, linagliptin, Lovenox, lorazepam, Haldol, atorvastatin, aspirin. REVIEW OF SYSTEMS: When I saw the patient, he was a poor historian and was [facility] [address] [place] [address] CONSULTATION Name: MIC NOGUERA Room #: 436-P [facility] IN ..#: [id number] Admission: 10/20/19 Attend Phys: Fadi Cabral MD Discharge: 11/03/19 Date of : 43 Report #: [id number] unable to give a satisfactory review of systems. PHYSICAL EXAMINATION: GENERAL: The patient is sitting on the side of the bed with occupational therapy. The patient has mild resting tremor and more severe intention tremor. The patient has sarcopenia. VITAL SIGNS: Temperature 35.6, pulse rate 63, blood pressure 160/52, respiratory rate 18, O2 sat 96 on room air. HEENT: No scleral icterus, no arcus. Pupils are round, equal. NECK: I do not hear any bruit. I do not palpate any mass. CHEST: Breath sounds are quite decreased with poor inspiratory effort. No adventitious sounds heard. HEART: Rhythm regular, no murmur. ABDOMEN: Soft. EXTREMITIES: No clubbing, cyanosis or edema. NEUROLOGIC: The patient has difficulty standing and I did not hazard a Romberg test. When sitting, the patient has a slightly positive pronator drift with left hand falling and moving laterally. No specific focal motor or sensory dysfunction other than generalized weakness. MUSCULOSKELETAL: No obvious bone or joint dissymmetry or deformity. SKIN: No rash or infection. IMAGING STUDIES: Brain MRI shows a new left temporal stroke and an old left cerebellar stroke. There is a drop out in the left internal carotid on the MRA, but there is a relatively normal CT duplex that shows the old stent and I believe the stent is responsible for this loss of signal and this was artifact and not a real finding. IMPRESSION: The patient seems to have some chronic neurologic dysfunction with a new temporal stroke that is not explained by the carotid lesion. The carotid arteries are relatively normal with ephi-ib-bovfqorx disease with velocities on the right actually being higher than the left. This could be further evaluated with an arteriogram either a direct stick or a CT angiogram, but I do not think that this would be warranted based on the location of the lesion and the physical findings. I would be happy to speak with you and defend my opinion if necessary. Thank you for the consult. <ELECTRONICALLY SIGNED> By: Jd Voss MD 11/03/19 1703 1134 0011 Jd Voss MD /nt
--- NOTE | 2019-11-05 17:35 | HC ---
[facility] [place] [address] CONSULTATION Name: MIC NOGUERA Room #: 436-P [facility] IN M.R.#: [id number] Admission: 10/20/19 Attend Phys: Fadi Cabral MD Discharge: 11/03/19 Date of : 43 Report #: [id number] THIS REPORT FOR: cc: Rahel Alegria MD, Nora P. MD Khosla, Parveen K. MD ~ CC: Fadi Alegria DATE OF SERVICE: 10/20/2019 HISTORY OF PRESENT ILLNESS: This is a 73-year-old male patient who is pretty angry and he is a pretty reluctant historian. He does not want to be here and he is angry that he is here. He provided very limited history and kept getting angry repeatedly. Lot of history is from the records. Records indicate that this patient is noncompliant and the family has called because the patient was becoming confused and belligerent. There is also some history that he was hallucinating. He was not taking his medications. He will not provide any of the history. REVIEW OF SYSTEMS: Indicate that he has a multisystem vascular disease with multiple stents at multiple places. He had coronary bypass surgery done in the past. He had hyperlipidemia, diabetes, tonsillectomy. One of the records says that he also has a PRES syndrome. He had multiple workups including MRIs starting with 2009, that does show an old site of stroke and he had a carotid Doppler, which showed a stent in the left carotid. He does have an obvious right facial palsy and he indicates that this is from a stroke a few years ago. He does not tell me when the stroke happened. After talking to him for a long time, this is all the history I can get. PAST MEDICAL HISTORY: Positive for essential tremor. FAMILY HISTORY: Unremarkable. SOCIAL HISTORY: Positive for smoking. PHYSICAL EXAMINATION: Indicates it is not possible to carry out the examination because he is angry and is withdrawal. He refused to cooperate with the higher function. His speech looks intact. Cranial nerve examination indicates right facial weakness, which according to him is old. His strength looked otherwise symmetrical but I tried to do the position sense, he refused to cooperate. I could not make him cooperate with the fundus or carotid examination. He does not appear to have any respiratory difficulties. Blood pressure is 154/83, respirations 18, pulse is 68, temperature is 98.9. [facility] [address] [place] [address] CONSULTATION Name: MIC NOGUERA Room #: 436-P [facility] IN [facility].#: [id number] Admission: 10/20/19 Attend Phys: Fadi Cabral MD Discharge: 11/03/19 Date of : 43 Report #: [id number] LABORATORY DATA: White count is normal. His CT was reviewed and the findings as above. His EKG demonstrates atrial fibrillation ____ and breathing was okay. IMAGING STUDIES: As described above. IMPRESSION: Pretty difficult to perform in this patient. He does have obvious right facial palsy. He says it is several months to few years old. It is very difficult to tell certain because he does not cooperate. His carotid Doppler by report indicates that it showed left-sided stent. If that is the case, it is possible he had that weakness as old. After talking to him for a while, he agreed for an MRI, which I will schedule and we will do the MRA at the same time if he allows us to do that. Attempt was made to do the CT angiogram at one time, but he did not cooperate at this time. He is on 40 mg of statin and his lipid profile is still not very good, if you may consider putting him even on a higher dose ____. His B12 is somewhat low and I will suggest some supplemental vitamin B12. Thank you very much for this referral. We will see how cooperative he is with the testing and do that. <ELECTRONICALLY SIGNED> By: Osvaldo Horne MD 11/05/19 1735 1134 1322 Osvaldo Horne MD /nt
--- NOTE | 2019-11-05 17:37 | EEG ---
[facility] [place] [address] ELECTROENCEPHALOGRAM Name: IMC NOGUERA Room #: 436-P [facility] IN M.R.#: [id number] Admission: 10/20/19 Attend Phys: Fadi Cabral MD Discharge: 11/03/19 Date of : 43 Report #: [id number] THIS REPORT FOR: //name// CC: Fadi Alegria DATE OF SERVICE: 10/23/2019 This patient is being evaluated for altered mental status. EEG was done by placing the electrode by standard 10-20 system of electrode placement. Both referential and sequential montages were used for recording. Background activity in this patient's EEG is about 8 Hz and 30 microvolt. It is a symmetrical activity, but it is intermixed with theta range slowing on both sides. Photic stimulation is unremarkable. Throughout the record, no active epileptiform activity was noticed. IMPRESSION: Moderately abnormal EEG because it is intermixed with slowing on both sides. That is a nonspecific finding, which can occur with dementia, encephalopathy, effect of psychotropic medication, etc. Clinical correlation is recommended. <ELECTRONICALLY SIGNED> By: Osvaldo Horne MD 11/05/19 1737 1630 1641 Osvaldo Horne MD /nt
--- NOTE | 2019-11-05 17:37 | EEG ---
[facility] [place] [address] ELECTROENCEPHALOGRAM Name: MIC NOGUERA Room #: 436-P [facility] IN M.R.#: [id number] Admission: 10/20/19 Attend Phys: Fadi Cabral MD Discharge: 11/03/19 Date of : 43 Report #: [id number] THIS REPORT FOR: //name// CC: Fadi Alegria DATE OF SERVICE: 10/30/2019 This patient is being evaluated for a prior history of seizure. EEG was done by placing the electrode by standard 10-20 system of electrode placement. Both referential and sequential montages were used for recording. Background activity in this patient's EEG is difficult to determine because there is a lot of artifact. It would appear it is about 8-9 Hz and 30 microvolts. The patient became drowsy and that is associated with bilateral slowing. Photic stimulation was unremarkable. No active epileptiform activity was noticed during this record. IMPRESSION: This patient's EEG does not demonstrate any clear-cut epileptiform activity. EEG is difficult to interpret because of lot of artifact present. Thank you very much for this referral. <ELECTRONICALLY SIGNED> By: Osvaldo Horne MD 11/05/19 1737 1437 [id number] Osvaldo Horne MD /nt
== END 2019-11-03 15:56 | DRG 64 ==
LOC: ER 18:59 → 2N 21:06 → EROBS 21:06 → 2N 22:18 → 4S 11-01 16:44
PROVIDERS: Emergency Medicine; Hospitalist; Internal Medicine Nephrology; Nurse Practitioner; Nurse Practitioner Family; Psychiatry & Neurology Neuromuscular Medicine; ADMIT Internal Medicine; ATTEND Internal Medicine
DX: I63.9 Cerebral infarction, unspecified (principal); N17.0 Acute kidney failure with tubular necrosis; E43 Unspecified severe protein-calorie malnutrition; I16.1 Hypertensive emergency; I67.4 Hypertensive encephalopathy; Z68.1 Body mass index [BMI] 19.9 or less, adult; N18.4 Chronic kidney disease, stage 4 (severe); R62.7 Adult failure to thrive; I12.9 Hypertensive chronic kidney disease with stage 1 through stage 4 chronic kidney disease, or unspecified chronic kidney disease; I16.0 Hypertensive urgency; E11.22 Type 2 diabetes mellitus with diabetic chronic kidney disease; F17.210 Nicotine dependence, cigarettes, uncomplicated; E78.5 Hyperlipidemia, unspecified; M19.90 Unspecified osteoarthritis, unspecified site; E11.51 Type 2 diabetes mellitus with diabetic peripheral angiopathy without gangrene; N40.0 Benign prostatic hyperplasia without lower urinary tract symptoms; E53.8 Deficiency of other specified B group vitamins; E55.9 Vitamin D deficiency, unspecified; F01.50 Vascular dementia, unspecified severity, without behavioral disturbance, psychotic disturbance, mood disturbance, and anxiety; Z95.1 Presence of aortocoronary bypass graft; Z95.820 Peripheral vascular angioplasty status with implants and grafts; Z90.49 Acquired absence of other specified parts of digestive tract; Z90.89 Acquired absence of other organs; Z83.3 Family history of diabetes mellitus; Z82.49 Family history of ischemic heart disease and other diseases of the circulatory system; Z88.5 Allergy status to narcotic agent; Z79.82 Long term (current) use of aspirin; Z79.891 Long term (current) use of opiate analgesic; Z79.899 Other long term (current) drug therapy; Z91.14 Patient's other noncompliance with medication regimen; Z03.818 Encounter for observation for suspected exposure to other biological agents ruled out
CPT/HCPCS: 10081; 10100; 10102

== ENCOUNTER 2020-06-25 17:15 | Emergency (ER) | payer MEDICARE ==
[~2020-06-25] VITALS: Ht 167.6 cm; Wt 43.1 kg
[~2020-06-25 17:15] MED LIST changes: +B-12500 MCG PO; +CARVEDILOL12.5 MG PO; +CLOPIDOGREL75 MG PO; +COZAAR 50 MG TA50 MG PO; +KEPPRA XR500 MG PO; +LANTUS100 UNIT/M SUBQ; +NAMENDA 5 MG TAB5 M1 PO; +NORVASC5 MG PO; +TRADJENTA5 MG PO; +VITAMIN B-6100 MG PO; +VITAMIN D21250 MC1 PO
[2020-06-25] MEDS ORDERED: NORCO5 PO (18:52)
[2020-06-25] MEDS ORDERED: IBUPROFEN 600600 M1 PO (18:52)
[2020-06-25 18:56] VITALS: BP 152/78
== END 2020-06-25 19:01 | disposition home or self-care (01) ==
LOC: ER 17:15
DX: S20.212A Contusion of left front wall of thorax, initial encounter (principal); E11.9 Type 2 diabetes mellitus without complications; E78.5 Hyperlipidemia, unspecified; I25.10 Atherosclerotic heart disease of native coronary artery without angina pectoris; N18.9 Chronic kidney disease, unspecified; F17.210 Nicotine dependence, cigarettes, uncomplicated; Z95.1 Presence of aortocoronary bypass graft; Z79.82 Long term (current) use of aspirin; Z79.01 Long term (current) use of anticoagulants; Z79.899 Other long term (current) drug therapy; Z88.5 Allergy status to narcotic agent; W18.2XXA Fall in (into) shower or empty bathtub, initial encounter; Y93.89 Activity, other specified; Y92.89 Other specified places as the place of occurrence of the external cause; Y99.8 Other external cause status

== ENCOUNTER 2020-12-07 16:59 | Inpatient (IN) | payer MEDICARE ==
[~2020-12-07] VITALS: Ht 167.6 cm; Wt 50.4 kg
[~2020-12-07 16:59] MED LIST changes: +IBUPROFEN 600600 M1 PO; +NORCO5 PO
[2020-12-07 17:00] VITALS: BP 142/98
[2020-12-07 17:27] LABS: ABSOLUTE NEUTROPHILS 5.4 thou/uL (1.4-8.2); BASOPHILS 0.4 % (0.0-2.0); EOSINOPHILS 0.1 % (0.0-3.0); HEMATOCRIT 42.6 % (42.0-52.0); HEMOGLOBIN 14.2 gm/dL (14.0-18.0); MCH 32.4 pg (26.0-34.0); MCHC 33.3 g/dL (28.0-37.0); MCV 97.2 fL (80.0-100.0); MONOCYTES 10.1 % (1.0-8.0); PLATELET COUNT 83 thou/uL (150-400); POLYS 80.4 % (36.0-66.0); RBC 4.38 mil/uL (4.50-6.00); RDW 13.6 % (10.5-14.5); WBC 6.7 thou/uL (4.0-11.0)
[2020-12-07 17:39] LABS: CALCIUM 7.5 mg/dL (8.5-10.1); CREATININE 1.5 mg/dL (0.7-1.3); POTASSIUM 4.2 mmol/L (3.5-5.1)
[2020-12-07 17:46] LABS: ALBUMIN 2.4 g/dL (3.4-5.0); TOTAL BILIRUBIN 0.5 mg/dL (0.2-1.0); TOTAL PROTEIN 6.2 g/dL (6.4-8.2)
[2020-12-07 18:09] LABS: MAGNESIUM 1.8 mg/dL (1.8-2.4); TROPONIN-I 0.17 ng/mL (<0.06)
--- NOTE | 2020-12-07 19:20 | NUR ---
PATIENT DENIES FEELING TO URINATE. I EDUCATED PATIENT ON ORDER FOR URINE PER ERP. PATIENT BECAME AGITATED THAT I KEPT ASKING FOR URINE AND EVEN OFFERED TO STRAIGHT CATH HIM. PATIENT CONTINUED TO REFUSE. ERP NOTIFIED.
[2020-12-07] MEDS ORDERED: JANUVIA100 MG PO (20:07)
[2020-12-07] MEDS ORDERED: ARICEPT10 M1 PO (20:10)
[2020-12-07] MEDS ORDERED: NORCO5 PO (20:11)
[2020-12-07] MEDS ORDERED: MYSOLINE50 MG PO (20:11)
--- NOTE | 2020-12-07 20:14 | NUR ---
CALLED PATIENTS SON & EDUCATED HIM ON POC FOR PATIENT.
[2020-12-07] MEDS ORDERED: ATORVASTATIN CA20 MG PO (22:46)
[2020-12-07] MEDS ORDERED: HYDROCODON-ACE1 EA14 PO (22:47)
[2020-12-07] MEDS ORDERED: NORCO7.5 PO (22:48)
[2020-12-08 03:46] LABS: HEMATOCRIT 41.8 % (42.0-52.0); HEMOGLOBIN 13.7 gm/dL (14.0-18.0); MCHC 32.9 g/dL (28.0-37.0); MCV 97.4 fL (80.0-100.0); RBC 4.29 mil/uL (4.50-6.00); RDW 13.7 % (10.5-14.5); WBC 3.4 thou/uL (4.0-11.0)
[2020-12-08 04:15] LABS: ALBUMIN 2.2 g/dL (3.4-5.0); CALCIUM 7.1 mg/dL (8.5-10.1); CREATININE 1.3 mg/dL (0.7-1.3); POTASSIUM 4.2 mmol/L (3.5-5.1); TOTAL BILIRUBIN 0.3 mg/dL (0.2-1.0); TOTAL PROTEIN 5.3 g/dL (6.4-8.2)
--- NOTE | 2020-12-08 12:14 | NUR ---
KUMAR, DAUGHTER [phone], UPDATE GIVEN W PT PERMISSION
[2020-12-08 16:29] VITALS: BP 182/71
--- NOTE | 2020-12-08 17:09 | NUR ---
75 year old male presented to the ED on 12-08-20 for AMS. The pt states he is feeling good and does not need to be here. He is oriented to time and place. Per the son who accompanied the patient he reports that the pt has become increasing confused over the past month or so, worsening dramatically in the past few days. The son can no longer care for the pt at his home and needs him to be placed into a facility. The patient reports he has had Covid twice but son states the patient has never tested positive. In the ED the patient is Positive on ID Now and per Triage assessment not vaccinated. The patient admits with: Acute hypoxic respiratory failure 2/2 COVID PNA. UNVACCINATED. Both PT and OT have been ordered on the patient. Per son the patient has lived with him and is seeking placement upon discharge from the hospital. Of note patient last here and discharged on November 022019 to [facility]. During this stay the patients daughter was the point of contact. ED lists son Isaac Asher at [phone] and patient gave permission for his daughter Judie Asher at [phone] to be updated as well. Spoke with son who reports that the patient attended a last week and his been only to his doctors beside that. The son notified those in the of current COVID status. The son has been tested and negative but following up with his MD. Son expressed desire to have patient placed in a facility as his needs have increased. Son also stated he is the DPOA and has his paperwork previously on file in 2019 but can get a copy. Re-introduced the role of CM and will follow for discharge planning and needs.
[2020-12-08 18:03] VITALS: BP 182/71
[2020-12-08 18:30] VITALS: BP 181/70
[2020-12-09] VITALS (7 sets, daily range): BP systolic 121–180; BP diastolic 51–81
[2020-12-09 02:20] LABS: HEMATOCRIT 41.8 % (42.0-52.0); HEMOGLOBIN 13.9 gm/dL (14.0-18.0); MCH 32.1 pg (26.0-34.0); MCHC 33.3 g/dL (28.0-37.0); MCV 96.4 fL (80.0-100.0); RBC 4.33 mil/uL (4.50-6.00); RDW 13.9 % (10.5-14.5); WBC 5.5 thou/uL (4.0-11.0)
[2020-12-09 02:36] LABS: ANION GAP 10 mmol/L (7-16); BUN 37 mg/dL (7-18); CALCIUM 7.1 mg/dL (8.5-10.1); CHLORIDE 109 mmol/L (98-107); CO2 24 mmol/L (21-32); CREATININE 1.6 mg/dL (0.7-1.3); DIRECT BILIRUBIN < 0.1 mg/dL (<0.1-0.2); GLUCOSE 148 mg/dL (74-106); PHOSPHORUS 5.3 mg/dL (2.5-4.9); SGOT 25 U/L (15-37); SGPT 12 U/L (30-65); SODIUM 143 mmol/L (136-145); TOTAL BILIRUBIN 0.3 mg/dL (0.2-1.0); TOTAL PROTEIN 5.4 g/dL (6.4-8.2)
--- NOTE | 2020-12-09 05:35 | HC ---
[facility] [place] [address] CONSULTATION Name: MIC NOGUERA Room #: 354-P [facility] IN M.R.#: [id number] Admission: 12/07/20 Attend Phys: Marcos Garcia Discharge: Date of : 43 Report #: [id number] THIS REPORT FOR: cc: Rahel Alegria MD, Nora P. MD Barry, Joseph W. MD ~ DATE OF SERVICE: 12/08/2020 INFECTIOUS DISEASE CONSULTATION ATTENDING PHYSICIAN: Dr. Garcia. REASON FOR EVALUATION: COVID-19 infection complicated by pneumonitis, respiratory failure. HISTORY OF PRESENT ILLNESS: The patient examined. A 75-year-old gentleman with significant medical history, has known history of diabetes mellitus complicated by vasculopathy, kidney disease and coronary artery disease. Also, has a seizure disorder with essential tremors, difficult to get a detailed history from him per the record. Apparently, he has been increasingly encephalopathic over the course of the last 30 days, however, worsened over the last few days, had apparently noted a cough due to concerns about possible coronavirus infection that was tested and was found to be positive. It is not clear if he has had a vaccination. Lactic acid is 1.6. Pro-calcitonin 0.07. Chest x-ray did show some infiltrates and currently, he is on supplemental oxygen 2 liters per nasal cannula. ALLERGIES: LISTED TO MORPHINE. CURRENT MEDICATIONS: Include atorvastatin, donepezil, furosemide, ____, famotidine, zinc, ascorbic acid, dexamethasone, aspirin, insulin sliding scale and remdesivir. Received ceftriaxone and azithromycin as well. PAST MEDICAL HISTORY: Include diabetes mellitus type 2 complicated by vasculopathy, has known coronary artery disease with previous aortocoronary bypass grafting, hyperlipidemia, hypertension, seizure disorder, history of chronic renal insufficiency, essential tremor, peripheral arterial disease, carotid disease, history of Hartley's palsy and previous stroke. SOCIAL HISTORY: No illicit drug use. Currently smokes tobacco. No ethanol. FAMILY HISTORY: Noncontributory. REVIEW OF SYSTEMS: Otherwise, unremarkable, not entirely clear that he has correct details. [facility] [address] [place] [address] CONSULTATION Name: MIC NOGUERA Room #: 354-P [facility] IN ..#: [id number] Admission: 12/07/20 Attend Phys: Marcos Garcia Discharge: Date of : 43 Report #: [id number] PHYSICAL EXAMINATION: GENERAL: He is exhibiting the tremor. Some of his speech is garbled, difficult to ascertain. Chronically ill appearing and undernourished. VITAL SIGNS: Temperature afebrile, pulse 72, respirations 14, blood pressure 171/88. SKIN: Warm and dry. No rashes. HEENT: Normocephalic. Nasal cannula in place, 2 L. NECK: Supple. LUNGS: Scattered coarse breath sounds. HEART: Distant, regular, do not appreciate murmur. ABDOMEN: Soft, nontender. EXTREMITIES: No cyanosis. GENITOURINARY AND RECTAL: Deferred. LABORATORY DATA: Most recent CBC: White count of 3.4, H and H 13.7 and 41.8, platelets of 73. Electrolytes: Sodium 140, potassium 4.2, chloride 106, bicarbonate is 23, anion gap of 11, BUN and creatinine 26 and 1.3. LFTs unremarkable. Albumin ____, total protein 5.3, estimated GFR 54. Pro-calcitonin 0.07. CT of the head, no acute intracranial process. TSH is 1.242. Chest x-ray, nonspecific patchy interstitial infiltrates. ASSESSMENT AND PLAN: COVID-19 infection, complicated by pneumonitis and respiratory failure, does have what appears to be acute on chronic encephalopathy based on the history. He may well have a secondary issue. Certainly given his smoking history and underlying vasculopathy including cardiomyopathy, he is certainly at risk for progressive disease. We will add ivermectin to the above stated treatment course as well as Actemra. Continue supportive care. May benefit from neurology evaluation for further workup. <ELECTRONICALLY SIGNED> By: Raul Whitney MD 12/09/20 0535 [id number] [id number] Raul Whitney MD /nt
--- NOTE | 2020-12-09 05:45 | NUR ---
PT MAKING SLOW PROGRESS TOWARDS GOALS. X3 EPISODES OF DIARHEA, INCONTINENT ONCE OVERNIGHT. PT NOTED TO BE 90% ON ROOM WHILE ASLEEP. NOTED TO BE 94% WITH O2 AT 2L PER NC. CONTINUE TO MONITOR.
--- NOTE | 2020-12-09 09:20 | EKG ---
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1945 Requested By: Merritt Tabor Order Number: [id number] MD: Jose Jang Measurements Intervals [place] Rate: 79 P: 89 AL: 103 QRS: 150 QRSD: 118 T: 61 QT: 431 QTc: 495 Interpretive Statements Sinus rhythm Multiple ventricular premature complexes Short [place] interval IRBBB and LPFB Compared to ECG 10/20/2019 19:27:06 Ventricular premature complex(es) now present Sinus tachycardia no longer present Electronically Signed On 12-09-2020 9:20:25 CDT by Jose Jang [email or web address] <ELECTRONICALLY SIGNED> By: Jose Jang MD, [facility] 12/09/20919 17 17 Jose Jang MD, [facility] /EPI
--- NOTE | 2020-12-09 14:29 | NUR ---
Patient admits with SOA/Covid 19. Attempted to call patient in room, no anwer. Sp with son. Patient resides with son in home. Son lives in basement. Son reports he is DPOA. Patient utilizes walker at home and has a cane. Son interested in ltc. Son reports he works 11 hours a day at [employer] and patient is left alone during day. Son reports buys him food but unsure if he is eating well during day. He is concerned if medications properly taken as well. Patient recently wandered from home and walking with walker in street. Patient has a dtr who son reports they are arguing regarding placement. He reports his sister has 4 children and she is busy with her family to assist during day. He has had some help in past but reports his dad "runs them off." Son reports at night patient will go to bathroom and use his cane instead of walker and fall. Patient has multiple falls in home. Son reports patient needs 24/7 care that he can not provide. Discussed facility accepting covid patients and rehab care. Faxed referral to [facility] for review. Anticipate no weekend discharge. Patient with hx of skilled care [facility].
--- NOTE | 2020-12-09 18:39 | NUR ---
ASSUNED PATIENT CARE AT 0700 A/0 X3. POOR APPETITE, WILL KEEP MONITOR.
[2020-12-09 23:17] LABS: BASOPHILS 0.3 % (0.0-2.0); HEMATOCRIT 40.1 % (42.0-52.0); HEMOGLOBIN 13.2 gm/dL (14.0-18.0); LYMPHOCYTES 15.8 % (24.0-44.0); MCH 31.7 pg (26.0-34.0); MCHC 32.9 g/dL (28.0-37.0); MCV 96.5 fL (80.0-100.0); MONOCYTES 3.5 % (1.0-8.0); PLATELET COUNT 83 thou/uL (150-400); POLYS 80.4 % (36.0-66.0); RBC 4.16 mil/uL (4.50-6.00); RDW 13.8 % (10.5-14.5); WBC 3.7 thou/uL (4.0-11.0)
[2020-12-10 01:17] VITALS: BP 124/63
--- NOTE | 2020-12-10 05:06 | NUR ---
Assumed pt's care this pm shift. Alert and oriented. Can be confused. VSS on 2L O2. Denies pain this shift. Incont B/B. Redness to bottom. Barrier cream applied as needed. Pt slept well this shift. Cooperative wsith care. Can be grumpy. NPC. Fall precaution in place. Call light within reach. Will continue to monitor.
[2020-12-10 05:37] VITALS: BP 163/58
[2020-12-10 05:49] LABS: ALBUMIN 2.1 g/dL (3.4-5.0); ANION GAP 12 mmol/L (7-16); BUN 42 mg/dL (7-18); CHLORIDE 108 mmol/L (98-107); CO2 22 mmol/L (21-32); CREATININE 1.6 mg/dL (0.7-1.3); DIRECT BILIRUBIN < 0.1 mg/dL (<0.1-0.2); GLUCOSE 88 mg/dL (74-106); PHOSPHORUS 4.1 mg/dL (2.5-4.9); POTASSIUM 3.8 mmol/L (3.5-5.1); SGOT 24 U/L (15-37); SGPT 10 U/L (30-65); SODIUM 142 mmol/L (136-145); TOTAL BILIRUBIN 0.2 mg/dL (0.2-1.0); TOTAL PROTEIN 5.3 g/dL (6.4-8.2)
[2020-12-10 07:08] VITALS: BP 138/76
[2020-12-10 11:06] VITALS: BP 158/106
[2020-12-10 15:37] VITALS: BP 169/74
--- NOTE | 2020-12-10 19:38 | NUR ---
ASSUMED PATIENT CARE AT 0700. A/O X4. POOR APPETITE. LOOSE STOOL. TITRATED TO 2L/NC. SLOWLY TOWARDS POC GOALS.
[2020-12-10 20:01] VITALS: BP 170/64
[2020-12-11 00:10] VITALS: BP 158/96
--- NOTE | 2020-12-11 00:38 | NUR ---
PT PROGRESSING TOWARDS D/C GOALS. VSS AFEBRILE. NO C/O PAIN. NO C/O SOA. UNLABORED ON 2LNC. BED DOWN CALL LIGT IN REACH. BED ALARM IS ON. WILL CONTINUE TO MONITOR PT FOR CHANGES.
[2020-12-11 04:08] VITALS: BP 155/73
[2020-12-11 05:27] LABS: ANION GAP 9 mmol/L (7-16); BUN 43 mg/dL (7-18); CALCIUM 7.1 mg/dL (8.5-10.1); CHLORIDE 107 mmol/L (98-107); CO2 25 mmol/L (21-32); CREATININE 1.5 mg/dL (0.7-1.3); DIRECT BILIRUBIN < 0.1 mg/dL (<0.1-0.2); GLUCOSE 91 mg/dL (74-106); PHOSPHORUS 3.2 mg/dL (2.6-4.7); POTASSIUM 3.8 mmol/L (3.5-5.1); SGOT 21 U/L (15-37); SGPT 8 U/L (16-63); SODIUM 141 mmol/L (136-145); TOTAL BILIRUBIN 0.2 mg/dL (0.2-1.0); TOTAL PROTEIN 4.9 g/dL (6.4-8.2)
--- NOTE | 2020-12-11 06:47 | NUR ---
PT PROGRESSING SLOWLY TOWARDS D/C GOALS. VSS AFEBRILE. UNLABORED ON 2LNC. NO C/O PAIN/ NO S/S SOA.
[2020-12-11 07:42] VITALS: BP 166/76
[2020-12-11 15:59] VITALS: BP 165/109
[2020-12-11 19:19] VITALS: BP 152/65
--- NOTE | 2020-12-12 03:53 | NUR ---
PT IS ALERT AND ORIENT TIMES TWO, CONFUSED TO TIME AND SITUATION. BED REST WITH BRIEFS DURING THE DAY. ABLE TO USE URINAL AT TIMES. VSS, AFEBRILE. SR-SB PER MONITOR. DENIES PAIN. A FAMILY FRIEND CALLED BY THE NAME OF "MARTIN". PT WAS MADE AWARE OF THE CALL AND DID NOT SEEM TO MIND TO HEAR FROM THIS CALLER. FOR INFORMATION ABOUT THE PT, THE CALLER WAS REFERRED TO THE PT'S DAUGHTER WHO IS THE DPOA. SLOW PROGRESS TOWARDS DC GOALS, WILL CONTINUE TO MONITOR.
[2020-12-12 04:11] VITALS: BP 163/77
[2020-12-12 04:55] LABS: HEMATOCRIT 39.3 % (42.0-52.0); HEMOGLOBIN 13.3 gm/dL (14.0-18.0); MCH 32.5 pg (26.0-34.0); MCV 95.8 fL (80.0-100.0); RBC 4.1 mil/uL (4.50-6.00); RDW 13.7 % (10.5-14.5)
[2020-12-12 05:13] LABS: ALBUMIN 1.9 g/dL (3.4-5.0); ANION GAP 7 mmol/L (7-16); BUN 45 mg/dL (7-18); CALCIUM 7.1 mg/dL (8.5-10.1); CHLORIDE 111 mmol/L (98-107); CO2 25 mmol/L (21-32); CREATININE 1.5 mg/dL (0.7-1.3); DIRECT BILIRUBIN < 0.1 mg/dL (<0.1-0.2); GLUCOSE 126 mg/dL (74-106); MAGNESIUM 1.8 mg/dL (1.8-2.4); PHOSPHORUS 3.4 mg/dL (2.6-4.7); SGOT 10 U/L (15-37); SGPT 7 U/L (16-63); SODIUM 143 mmol/L (136-145); TOTAL BILIRUBIN 0.2 mg/dL (0.2-1.0); TOTAL PROTEIN 4.9 g/dL (6.4-8.2)
[2020-12-12 07:27] VITALS: BP 178/74
[2020-12-12 11:36] VITALS: BP 149/71
--- NOTE | 2020-12-12 14:28 | NUR ---
FAUSTO reviewed chart and spoke with nursing and attending physician. Pt remains in Enhanced Isolation due to COVID. Pt is afebrile and on 3L of O2. Pt is on IV abx and IV steroids. Pt to complete course of Remdesivir today. Pt with poor oral intake. FAUSTO faxed clinical updates to [facility] for review. Awaiting therapy notes. FAUSTO contacted [place] post-acute liaison, who states they do need insurance auth for SNF admission. [facility] SNF is able to accept pt pending insurance auth. FAUSTO spoke with pt's son, Isaac, via phone to provide update and discussed discharge plan. Isaac is agreeable with plan. FAUSTO updated Isaac that pt has not been eating well. Pt's son states that he does not eat a lot at home and pt may be having trouble chewing and/or swallowing. FAUSTO updated attending physician and requested a ST eval. Pt's son will be going back to work tomorrow and may not able to be contacted by phone. Pt's son states his sister, Judie, is aware of discharge plan and can be contacted if needed. FAUSTO is following to assist as needed with discharge planning.
[2020-12-12 15:36] VITALS: BP 149/77
--- NOTE | 2020-12-12 18:29 | NUR ---
ASSUMED PATIENT CARE AT 0700. A/O X3. REFUSED TO EAT. VSS. NOT TOWARDS POC GOALS
[2020-12-12 19:26] VITALS: BP 152/64
[2020-12-13 03:21] VITALS: BP 161/63
[2020-12-13 05:39] LABS: CALCIUM 7.2 mg/dL (8.5-10.1); CREATININE 1.4 mg/dL (0.7-1.3)
--- NOTE | 2020-12-13 06:28 | NUR ---
PT A/0 X3 AND FUSSY. VSS OVERNIGHT. PT WAS INCONT TO B/B. PER SW, PT IS WAITING FOR PLACEMENT. HOURLY ROUNDING. FALL AND ISOLATION PRECAUTIONS IN PLACE.
[2020-12-13 07:25] VITALS: BP 172/64
--- NOTE | 2020-12-13 08:18 | NUR ---
Recommend start clinimix PPN until oral intake improves. Suggest rate of 100ml/hr.
[2020-12-13 11:22] VITALS: BP 153/70
--- NOTE | 2020-12-13 13:57 | NUR ---
FAUSTO reviewed chart and spoke with nursing and attending physician. Pt remains in Enhanced Isolation due to COVID. Pt is afebrile and on 4L of O2. Pt is on IV steroids. ST [place] completed earlier today. Pt on a regular diet with thin liquids. Pt refused to eat. FAUSTO spoke with pt's dtr, Judie, via phone to provide update and discussed discharge plan. Per Judie, pt will not eat hospital food. Judie asked if family can bring in food for pt to eat. FAUSTO discussed with nursing and attending physician. Family to bring in food later today. FAUSTO updated Judie. FAUSTO faxed clinical and therapy notes to [place] post-acute liaison for review. Will submit to insurance for authorization. FUASTO is following to assist as needed with discharge planning.
--- NOTE | 2020-12-13 14:39 | NUR ---
CAREE TAKEN OVER THIS AM, PT ALERT AND ORIENTED X4, FORGETFUL AT TIMES. HAS GENERALIZED TREMORS. DENIES CHEST PAIN. CURRENTLY ON 3L OF OXYGEN, SOB WITH EXERTION. USES URINAL. FALL AND ENHANCED PRECAUTIONS IN PLACE. DENIES ANY NEEDS AT MOMENT. ANTICIPATING FOR D/C TO KILLED CUSTODIAL SOON
[2020-12-13 15:16] VITALS: BP 141/55
[2020-12-13 19:29] VITALS: BP 152/74
[2020-12-14 03:00] VITALS: BP 168/78
[2020-12-14 07:51] VITALS: BP 174/64
--- NOTE | 2020-12-14 09:01 | NUR ---
Recommend appetite stimulant as pt voicing not hungry.
[2020-12-14 14:04] LABS: HEMATOCRIT 41.2 % (42.0-52.0); HEMOGLOBIN 13.7 gm/dL (14.0-18.0); MCHC 33.2 g/dL (28.0-37.0); MCV 96.3 fL (80.0-100.0); RBC 4.28 mil/uL (4.50-6.00); WBC 8.9 thou/uL (4.0-11.0)
[2020-12-14 14:15] LABS: CALCIUM 7.2 mg/dL (8.5-10.1); CREATININE 1.5 mg/dL (0.7-1.3); MAGNESIUM 1.9 mg/dL (1.8-2.4); POTASSIUM 4.5 mmol/L (3.5-5.1)
--- NOTE | 2020-12-14 15:49 | NUR ---
FAUSTO reviewed chart and spoke with nursing and attending physician. Pt remains in Enhanced Isolation due to COVID. Pt is afebrile and on 3L of O2. Pt is on IV steroids. FAUSTO received call from [facility] post acute liaison, who states that the facility did not cancel their request for auth yesterday. Miscommunication between the admissions and the business office. SNF auth has been denied. Cat states they will resubmit for anticipated discharge in 1-2 days. FAUSTO faxed updated clinical/therapy notes to [facility] for review. FAUSTO is following to assist as needed with discharge planning.
--- NOTE | 2020-12-14 19:44 | NUR ---
RN ASSUMED PT'S CARE AT 0700-1900PM, PT IS A&OX3 ( PERSON , PLACE AND TIME), PT IS ON O2 3L/MIN/NC, PT'S VS AND O2SAT ARE STABLE, BUT PT IS POOR EAT , PT REFUSED DINNER .
[2020-12-14 19:45] VITALS: BP 151/58
[2020-12-15 03:47] LABS: HEMATOCRIT 36.1 % (42.0-52.0); HEMOGLOBIN 12.1 gm/dL (14.0-18.0); MCH 32.5 pg (26.0-34.0); MCHC 33.6 g/dL (28.0-37.0); MCV 96.6 fL (80.0-100.0); RBC 3.74 mil/uL (4.50-6.00); RDW 13.9 % (10.5-14.5); WBC 9.2 thou/uL (4.0-11.0)
[2020-12-15 03:59] LABS: CALCIUM 7.3 mg/dL (8.5-10.1); CREATININE 1.5 mg/dL (0.7-1.3); MAGNESIUM 1.9 mg/dL (1.8-2.4); POTASSIUM 4.6 mmol/L (3.5-5.1)
[2020-12-15 04:08] VITALS: BP 193/90
--- NOTE | 2020-12-15 13:32 | NUR ---
FAUSTO reviewed chart and spoke with nursing and attending physician. Pt remains in Enhanced Isolation due to COVID. Pt is afebrile and on 3L of O2. Pt is on IV steroids. Pt had not been eating well. FAUSTO provided pt's dtr's contact info to attending physician to provide update. FAUSTO spoke with [facility] post-acute liaison to provide update. Awaiting insurance authorization at this time. FAUSTO to fax additional therapy notes when they are available. FAUSTO is following to assist as needed with discharge planning.
--- NOTE | 2020-12-15 17:00 | NUR ---
RN ASSUMED PT'S CARE AT 0700AM, PT IS A&O X3 ( PERSON, PLACE AND TIME), PT IS ON O2 3L/MIN/NC, PT'S VS AND O2SAT ARE STABLE, BUT PT STILL IS POOR EATING AT MEAL TIME, PT DENIES PAIN AND SOB BY THIS TIME.
[2020-12-15 17:45] VITALS: BP 152/55
[2020-12-15 17:59] VITALS: BP 106/60
[2020-12-15 20:23] VITALS: BP 125/72
[2020-12-16 04:29] LABS: HEMATOCRIT 33.8 % (42.0-52.0); HEMOGLOBIN 11.3 gm/dL (14.0-18.0); MCH 32.4 pg (26.0-34.0); MCHC 33.5 g/dL (28.0-37.0); MCV 96.4 fL (80.0-100.0); RBC 3.5 mil/uL (4.50-6.00); RDW 13.7 % (10.5-14.5); WBC 9.6 thou/uL (4.0-11.0)
[2020-12-16 04:49] LABS: CALCIUM 7.4 mg/dL (8.5-10.1); CREATININE 1.8 mg/dL (0.7-1.3); MAGNESIUM 1.9 mg/dL (1.8-2.4); POTASSIUM 4.6 mmol/L (3.5-5.1)
[2020-12-16 05:12] VITALS: BP 144/59
[2020-12-16 07:40] VITALS: BP 148/62
[2020-12-16 11:55] VITALS: BP 144/106
[2020-12-16 14:39] LABS: BE(vivo) -3.2 mmol/L (-2 to +3); HCO3 21.7 mmol/L (22.0-26.0); PCO2 38.8 mmHg (35.0-45.0); PO2 56.4 mmHg (80.0-100.0); pH 7.366 (7.360-7.450); sO2 88.6 % (92.0-98.0)
--- NOTE | 2020-12-16 14:40 | NUR ---
FAUSTO reviewed chart and spoke with nursing and attending physician. Pt remains in Enhanced Isolation due to COVID. Pt is afebrile and was on 3L of O2 this morning. Pt now on 9L. Pt is on IV steroids. FAUSTO was notified by [facility] post acute liaison that insurance denied SNF admission. Info for appeal provided to FAUSTO. Discussed with attending physician. Pt is not medically stable for discharge today or over the weekend. FAUSTO updated Cat with [facility]la and asked if there is a deadline for the appeal, or if they are going to be able to submit for a new auth next week. Awaiting input from Cat at this time. FAUSTO spoke with pt's dtr, Judie, via phone to provide update. Judie is aware of pt not discharging today or over the weekend and will update her brother. FAUSTO is following to assist as needed with discharge planning.
[2020-12-16 16:02] VITALS: BP 131/59
[2020-12-16 16:02] LABS: ABSOLUTE NEUTROPHILS 10.8 thou/uL (1.4-8.2); BASOPHILS 0.1 % (0.0-2.0); EOSINOPHILS 0.2 % (0.0-3.0); HEMATOCRIT 38.7 % (42.0-52.0); HEMOGLOBIN 12.8 gm/dL (14.0-18.0); LYMPHOCYTES 3.4 % (24.0-44.0); MCH 31.9 pg (26.0-34.0); MCHC 33.1 g/dL (28.0-37.0); MCV 96.5 fL (80.0-100.0); PLATELET COUNT 131 thou/uL (150-400); POLYS 94.3 % (36.0-66.0); RBC 4.01 mil/uL (4.50-6.00); RDW 13.9 % (10.5-14.5); WBC 11.5 thou/uL (4.0-11.0)
[2020-12-16 16:17] LABS: CALCIUM 7.7 mg/dL (8.5-10.1); CREATININE 1.9 mg/dL (0.7-1.3); MAGNESIUM 2.1 mg/dL (1.8-2.4); POTASSIUM 4.8 mmol/L (3.5-5.1)
[2020-12-16 19:45] VITALS: BP 119/97
--- NOTE | 2020-12-16 20:00 | NUR ---
RN ASSUMED PT'S CARE AT 0700-1900PM, PT IS A&OX3( PERSON, PLACE AND TIME), RN HAS REPROTED TO DR ABOUT PT REFUSED MEALS AND PT 'S O2 INCRESE TO 9L/MIN/NC FROM 3L/MIN/NC AT 1000PM, NEW ORDER RECEVED , PT'S O2SAT STAYS AT 92-95% WITH O2 9-15L/MIN/NC, PT WILL STARTED PPN @75ML/HR AT NIGH SHIFT DUE TO POOR EATING, RN HAS UPDATED PT'S INFORMATION TO PT'S DAUGHTER.
--- NOTE | 2020-12-16 22:54 | NUR ---
PT ALERT AND ORIENTED X3 . MILDLY CONFUSED AT TIMES FOR EXAMPLE HE TRIES TO USE CALL LIGHT A PHONE. VSS AFEBRILE. PPN STARTED ORDERED. SR WITH PACS ON MONITOR.O2 SATS CURRENTLY [phone] ON 15LNC.
[2020-12-17] VITALS (7 sets, daily range): BP systolic 117–170; BP diastolic 51–67
--- NOTE | 2020-12-17 04:40 | NUR ---
PT PROGRESSING SLOWLY. HE IS ON NC 15L. SAT IS 95%. LUNGS SOUND COARSE WITH WHEEZES THIS AM. ENCOURAGED PT TO T, C &DB. ZGARD APPLIED TO PERINEAL AREA. PPN INFUSING WITHOUT DIFFCULTY.
[2020-12-17 05:13] LABS: HEMATOCRIT 39.5 % (42.0-52.0); HEMOGLOBIN 13.2 gm/dL (14.0-18.0); MCH 32.4 pg (26.0-34.0); MCHC 33.3 g/dL (28.0-37.0); MCV 97.2 fL (80.0-100.0); RBC 4.07 mil/uL (4.50-6.00); RDW 14.1 % (10.5-14.5); WBC 10.3 thou/uL (4.0-11.0)
[2020-12-17 05:28] LABS: CALCIUM 7.4 mg/dL (8.5-10.1); MAGNESIUM 2.1 mg/dL (1.8-2.4); POTASSIUM 4.5 mmol/L (3.5-5.1)
--- NOTE | 2020-12-17 07:33 | NUR ---
AROUND 05:28 PT C/O SOA GRABBING LEFT SIDE OF CHEST. I ASKED PT IF IT HURT WITH BREATHING HE STATED YES. PT ALSO KEPT DESATTING FROM 90S TO 70-80S. ENCOURAGED PT TO TURN COUGH AND DEEP BREATHE. TYLENOL GIVEN AND ATIVAN. NOTIFIED TELEPHONE SERVICE ADVISER OF THE ABOVE. TROPONIN STAT DONE AND CAME BACK NEGATIVE. EKG DONE. ALBUTEROL NEBULIZER GIVEN PER RT X1. MORPHINE 4MG IV GIVEN X1. AFTER MORPHINE PT EXPRESSED COMPLETE RELIEF OF CHEST PAIN. PT IS RESTING QUIETLY PRESENTLY. NO C/O SOA OR CP PRESENTLY. NOTIFIED TELEPHONE SERVICE ADVISER LUNGS SOUND MORE COARSE WITH WHEEZES THIS MORNING. SHE DID NOT WANT A CXRAY OR LASIX. NOTIFIED PT IS VOIDING IN SMALL AMTS PER SHIFT. SEE I AND O.
--- NOTE | 2020-12-17 18:04 | NUR ---
CARE ASSUMED THIS AM, PT ALERT AND ORIENTED X3, FORGETFUL AT TIMES AND NON COMPLIANT. CONTINUES TO HAVE LOW APPETITE, ENCOURAGING HIM TO EAT. CURRENTLY ON 10L O2, SOB WITH EXERTION. INCONTINENT OF URINE. PPN RUNING AT 75ML/HR. FALL PRECAUTIONS IN PLACE. WILL CONTINUE TO MONITOR
--- NOTE | 2020-12-17 22:27 | NUR ---
PT ALERT AND ORIENTED X3. MILDLY CONFUSED AT TIMES. SAT WNL PRESENTLY ON 10LNC. NO C/O PAIN. NO C/O SOA. BED DOWN .CALL LIGHT IN REACH. BED ALARM IS ON. ZGARD TO BOTTOM. WILL CONTINUE TO MONITOR PT FOR CHANGES.
[2020-12-18 03:42] VITALS: BP 142/58
[2020-12-18 05:16] LABS: HEMATOCRIT 38.5 % (42.0-52.0); HEMOGLOBIN 12.9 gm/dL (14.0-18.0); MCH 32.2 pg (26.0-34.0); MCHC 33.4 g/dL (28.0-37.0); MCV 96.3 fL (80.0-100.0); RDW 13.9 % (10.5-14.5); WBC 13.5 thou/uL (4.0-11.0)
[2020-12-18 06:08] LABS: CALCIUM 7.4 mg/dL (8.5-10.1); CREATININE 1.9 mg/dL (0.7-1.3); MAGNESIUM 2.3 mg/dL (1.8-2.4)
--- NOTE | 2020-12-18 06:10 | NUR ---
PT PROGRESSING TOWARDS D/C GOALS. VSS AFEBRIILE. UNLABORED PRESENTLY WITH O2 10LNC ON. NO C/O PAIN. NO S/S DISTRESS PRESENTLY. PT CONTINUES TO HAVE A POOR APPETITE. PPN INFUSING.
[2020-12-18 06:16] LABS: POTASSIUM 5.5 mmol/L (3.5-5.1)
[2020-12-18 07:45] VITALS: BP 142/56
[2020-12-18 11:21] VITALS: BP 117/57
--- NOTE | 2020-12-18 13:40 | NUR ---
PT IS NOT PROGRESSING TOWARDS POC, CONTINUE TO REFUSE MEALA AND SOME MEDICATIONS. NON COMPLIANT AND "DOESNT WANT TO BE BOTHER WITH NURSING CARE". CONTINUE TO BE ON PPN. OXYGEN around 7L. INCONTINENT OF BOWLE AND URINE. FALL PRECAUTIONS IN PLACE. WILL CONTINUE TO MONITOR
[2020-12-18 16:09] VITALS: BP 118/49
[2020-12-18 20:15] VITALS: BP 136/55
[2020-12-19 04:00] VITALS: BP 122/53
--- NOTE | 2020-12-19 06:59 | NUR ---
ASSUME CARE 1900. PT/VITALS STABLE. PT DENIES ANY PAIN. A/O TO PERSON/PL. VERY POOR TOLERANCE TO ACTIVITY. SOB WITH MILD EXERTION. ON 15L NON REBREATHER/TOLERATES WELL. ASSESSMENT CHARTED. POOR PROGRESS TO POC. SR/SB ON MONITOR. PLAN IS TO CONTINUE TO MANAGE COVID, ENCOURAGE NUTRITIONAL INTAKE AND HYDRATION, MONITOR AND MANAGE RESPIRATORY FUNCTION. WILL CONTINUE TO MONITOR AND FOLLOW WITH POC
[2020-12-19 07:24] VITALS: BP 184/153
--- NOTE | 2020-12-19 07:26 | EKG ---
[address] [place] [address] ELECTROCARDIOGRAM REPORT Name: MIC NOGUERA Room #: 354- ADM IN M.R.#: [id number] Admission: 12/07/20 Attend Phys: Marcos Garcia Discharge: Date of : 43 Report #: [id number] [facility] Test Date: 2020-12-17 Test Time: 06:12:25 Pat Name: MIC NOGUERA Department: Room: 354 Gender: M Ob Tech: [id number] : 1945 Requested By: Shirlene Gan Order Number: [id number] MD: Augustine Wright Measurements Intervals [place] Rate: 71 P: -4 MS: 106 QRS: 91 QRSD: 145 T: 48 QT: 502 QTc: 546 Interpretive Statements Sinus rhythm Paired ventricular premature complexes Short [place] interval RBBB and LPFB Baseline wander in lead(s) I,II,aVR,V4,V5,V6 Compared to ECG 12/07/2020 18:18:18 Right bundle-branch block now present Incomplete right bundle-branch block no longer present Electronically Signed On 12-19-2020 7:26:22 CDT by Augustine Wright [email or web address] <ELECTRONICALLY SIGNED> By: Augustine Wright MD, [facility] 12/19/20 0726 1 1 Augustine Wright MD, [facility] /EPI
--- NOTE | 2020-12-19 07:26 | EKG ---
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 : 1945 Requested By: Marcos Garcia Order Number: [id number] MD: Augustine Wright Measurements Intervals [place] Rate: 59 P: 42 HI: 109 QRS: 99 QRSD: 120 T: 4 QT: 479 QTc: 475 Interpretive Statements Sinus rhythm Short HI interval RBBB Baseline wander in lead(s) II,III,aVF Compared to ECG 12/17/2020 06:12:25 Ventricular premature complex(es) no longer present Electronically Signed On 12-19-2020 7:26:31 CDT by Augustine Wright [email or web address] <ELECTRONICALLY SIGNED> By: Augustine Wright MD, [facility] 12/19/20 0726 2 2 Augustine Wright MD, [facility] /EPI
[2020-12-19 07:41] VITALS: BP 141/57
--- NOTE | 2020-12-19 07:50 | NUR ---
Pt has refused meals or eating less than 25% for 12 days of admit. Refuses oral supplements. PPN infused 12/16-12/19. Renal labs worsening. Recommend consider dobhoff placement if possible and start tube feeds of glucerna 1.2 at 30ml/hr
[2020-12-19 08:52] LABS: HEMATOCRIT 39.4 % (42.0-52.0); HEMOGLOBIN 12.7 gm/dL (14.0-18.0); MCH 31.1 pg (26.0-34.0); MCHC 32.3 g/dL (28.0-37.0); MCV 96.5 fL (80.0-100.0); RBC 4.08 mil/uL (4.50-6.00); RDW 14.2 % (10.5-14.5); WBC 13.2 thou/uL (4.0-11.0)
[2020-12-19 09:04] LABS: CALCIUM 7.7 mg/dL (8.5-10.1); CREATININE 2.2 mg/dL (0.7-1.3); MAGNESIUM 2.4 mg/dL (1.8-2.4)
[2020-12-19 09:04] LABS: BE(vivo) -4.6 mmol/L (-2 to +3); HCO3 20.6 mmol/L (22.0-26.0); PCO2 38.8 mmHg (35.0-45.0); PO2 74.7 mmHg (80.0-100.0); pH 7.343 (7.360-7.450); sO2 94.3 % (92.0-98.0)
--- NOTE | 2020-12-19 10:45 | NUR ---
PT HAS REFUSED BREAKFAST, REFUSED SUPPLEMENT. STATES HIS 10YEARS AGO AND HE JUST WANTS TO BE LEFT ALONE. PT IS NOW ON OPTIFLOW. THIS RN HAS HAD TO REPOSITION PT HAS ALREADY PULLED IT OFF. PT STATES IF HE HEARS THE CONTINUOUS PULSE OX GO OFF AGAIN, HE WILL "THROW IT AGAINST THE WALL" PT IS OTHERWISE COMPLIANT WITH HIS MEDICATIONS. PHYSICIAN NOTIFIED.
--- NOTE | 2020-12-19 13:41 | NUR ---
THIS RN DISCUSSED POC WITH DR COE. FAUSTO MCFARLANE, WAS CONSULTED FOR HOSPICE HOUSE QUESTION REGARDING COVID POSITIVE CARE.
--- NOTE | 2020-12-19 15:06 | NUR ---
PT REFUSED MEDICATION ADMINISTRATION. PT REQUESTED THE CONTINUOUS PULSE OX BE SHUT OFF. PT IS VERY VERBALLY IRATE AND REQUESTED "TO BE LEFT THE HELL ALONE" PHYSICIAN NOTIFIED.
[2020-12-19 15:16] VITALS: BP 127/57
--- NOTE | 2020-12-19 16:09 | NUR ---
FAUSTO reviewed chart and spoke with nursing and attending physician. Pt remains in Enhanced Isolation due to COVID. Pt is afebrile and requiring optiflow. Pt is on IV steroids. Pt on PPN due to poor intake. Attending physician spoke with pt's dtr, Judie, and son, Isaac, regarding the plan of care. Pt's code status changed to DNR. SW spoke with Judie via phone to discuss plan of care. Pt's dtr states that family is agreeable with comfort care/hospice, but would like to try to bring pt home. SW discussed options for hospice and the possibility of pt remaining at [facility] for inpatient hospice, should pt not be stable for transfer. Pt's dtr verbalized understanding and is agreeable with referral to [facility]. FAUSTO faxed referral and notified liaisonAnahi. stereo compiler to evaluate pt to determine if pt is appropriate to d/c home. If so, DME will be delivered prior to pt's discharge. Pt is on 55L optiflow 90% FI02. FAUSTO discussed with strategic partnership manager regarding isolation status. FAUSTO updated pt's nurse and attending physician. FAUSTO is following to assist as needed with discharge planning.
[2020-12-19 19:25] VITALS: BP 127/65
[2020-12-20 02:29] VITALS: BP 148/92
--- NOTE | 2020-12-20 04:14 | NUR ---
Patient progressing towards his goal of going home with comfort care. Restless with periods of anger and agitation, states he cannot tolerate optiflow, switched to NRB masks, Ativan and Haldol given, some relief but patient still needs to be closely monitored as he keeps taking mask and pulling telemerty wire off. He is able to turn to his sides. Periods where he woul wake up and attempts to get up stating he is going home. Multiple times he repeats "I just want to go home. If I I am ready". Incontinent of bowel and bladder.
[2020-12-20 05:19] LABS: CALCIUM 7.3 mg/dL (8.5-10.1); CREATININE 2.4 mg/dL (0.7-1.3); MAGNESIUM 2.4 mg/dL (1.8-2.4)
[2020-12-20 05:26] LABS: HEMATOCRIT 37.6 % (42.0-52.0); HEMOGLOBIN 12.7 gm/dL (14.0-18.0); MCH 32.3 pg (26.0-34.0); MCHC 33.7 g/dL (28.0-37.0); RBC 3.92 mil/uL (4.50-6.00)
[2020-12-20 07:44] VITALS: BP 129/65
--- NOTE | 2020-12-20 09:17 | NUR ---
PT REMOVED OPTIFLOW PER HOTHOUSE WORKER REPORT. PT NOW ON 12L O2 VIA NC. PT HAS MARKED DECLINE IN SWALLOWING ABILITY SINCE YESTERDAY. PT UNABLE TO SWALLOW MORNING MEDICATION. THIS RN IDENTIFIED MEDS BEST POSSIBLE PT SPIT THEM OUT. PT VERY WEAK, AUDIBLE WHEEZING. KEEPS STATING "I'M TRYING" PT REFUSING BREAKFAST. THIS RN WAS ONLY ABLE TO HAVE PT SWALLOW ONE MILADIS OF WATER POST PILL SPITTING OUT.
--- NOTE | 2020-12-20 09:56 | NUR ---
Per Dr Cabral, Dr Montanez states pt is ok to come out of COVID isolation for comfort care/hospice care.
--- NOTE | 2020-12-20 11:40 | NUR ---
FAUSTO reviewed chart and spoke with nursing and attending physician. Enhanced Isolation precautions have been discontinued today per ID. Pt on 12L of O2 via NC. FAUSTO spoke with IAIN Wright with [facility], who states she did evaluate pt last evening and spoke with pt's dtr, Judie. Family is hopeful for pt to be able to return home. However, pt's condition has deteriorated overnight. FAUSTO spoke with pt's dtr, Judie, via phone who states they are still hopeful for pt to get home. FAUSTO left voice message for Adriana at [facility]. FAUSTO also contacted [facility] liaison, Anahi, to see how quickly DME could be delivered to pt's home, if pt is stable to discharge. Awaiting call back from [facility] at this time. Pt to move off 3W when a bed becomes available. Pt would be able to have visitors once transferred off of 3W. FAUSTO is following to assist as needed with discharge planning.
--- NOTE | 2020-12-20 14:50 | NUR ---
Pt transferred from 3W so he could be with family when he . He arrived on 4W room 453 at 12:00. Family was allowed to say their goodbyes and then we turned off the O2. Pt at 1330PM. Informed Dr. Cabral and house principal. Went over forms with family. They did not want to donate any body parts due to covid. Filled out paper work to send body to home.
--- NOTE | 2020-12-20 15:55 | NUR ---
PT PASSED THIS AFTERNOON AROUND 1330. PT'S DTR KUMAR WAS AT BEDSIDE. SHE HAD PROVIDED STAFF WITH INFO RELATED TO HOME PREFERENCE. CM NOTIFIED [facility] WHO HAD BEEN FOLLOWING OF PT'S PASSING. PHYSICIAN WAS NOTIFIED. SECURITY TO BE NOTIFIED APPROPRIATLY. NO OTHER CM INTERVENTION INDICATED. CASE CLOSED.
== END 2020-12-20 17:30 | DRG 871 ==
LOC: ER 16:59 → EROBS 20:15 → 3W 20:15 → EROBS 12-08 09:16 → 3W 12-08 18:32 → 4W 12-20 11:45
PROVIDERS: Emergency Medicine; Hospitalist; Internal Medicine; Internal Medicine Pulmonary Disease; Nurse Practitioner; Nurse Practitioner Family; ADMIT Hospitalist; ATTEND Hospitalist
PROC: XW033E5 Introduction of Remdesivir Anti-infective into Peripheral Vein, Percutaneous Approach, New Technology Group 5 (ICD-10-PCS; principal; 2020-12-08)
PROC: 5A0935A Assistance with Respiratory Ventilation, Less than 24 Consecutive Hours, High Flow/Velocity Cannula (ICD-10-PCS; 2020-12-16)
PROC: 5A0935A Assistance with Respiratory Ventilation, Less than 24 Consecutive Hours, High Flow/Velocity Cannula (ICD-10-PCS; 2020-12-17)
PROC: 5A0935A Assistance with Respiratory Ventilation, Less than 24 Consecutive Hours, High Flow/Velocity Cannula (ICD-10-PCS; 2020-12-19)
PROC: 5A0935A Assistance with Respiratory Ventilation, Less than 24 Consecutive Hours, High Flow/Velocity Cannula (ICD-10-PCS; 2020-12-20)
DX: A41.9 Sepsis, unspecified organism (principal); U07.1 COVID-19; J12.82 Pneumonia due to coronavirus disease 2019; J80 Acute respiratory distress syndrome; N17.9 Acute kidney failure, unspecified; G93.40 Encephalopathy, unspecified; M31.9 Necrotizing vasculopathy, unspecified; E44.0 Moderate protein-calorie malnutrition; I50.30 Unspecified diastolic (congestive) heart failure; Z68.1 Body mass index [BMI] 19.9 or less, adult; I13.0 Hypertensive heart and chronic kidney disease with heart failure and stage 1 through stage 4 chronic kidney disease, or unspecified chronic kidney disease; Z66 Do not resuscitate; Z51.5 Encounter for palliative care; R65.20 Severe sepsis without septic shock; N40.0 Benign prostatic hyperplasia without lower urinary tract symptoms; I25.10 Atherosclerotic heart disease of native coronary artery without angina pectoris; E78.5 Hyperlipidemia, unspecified; N18.9 Chronic kidney disease, unspecified; E11.65 Type 2 diabetes mellitus with hyperglycemia; G40.909 Epilepsy, unspecified, not intractable, without status epilepticus; E11.51 Type 2 diabetes mellitus with diabetic peripheral angiopathy without gangrene; F17.210 Nicotine dependence, cigarettes, uncomplicated; R53.81 Other malaise; G25.0 Essential tremor; F03.90 Unspecified dementia, unspecified severity, without behavioral disturbance, psychotic disturbance, mood disturbance, and anxiety; D64.9 Anemia, unspecified; E87.5 Hyperkalemia; D69.6 Thrombocytopenia, unspecified; F32.9 Major depressive disorder, single episode, unspecified; R41.9 Unspecified symptoms and signs involving cognitive functions and awareness; R41.0 Disorientation, unspecified; Z90.49 Acquired absence of other specified parts of digestive tract; Z95.1 Presence of aortocoronary bypass graft; Z91.14 Patient's other noncompliance with medication regimen; Z88.6 Allergy status to analgesic agent; Z71.6 Tobacco abuse counseling; Z79.82 Long term (current) use of aspirin; Z79.899 Other long term (current) drug therapy; Z95.828 Presence of other vascular implants and grafts
CPT/HCPCS: 10879